=== PATIENT | male | born 1945 | race Caucasian/White ===

== ENCOUNTER 2017-02-07 11:33 | Emergency (ER) | payer OTHER ==
[~2017-02-07] VITALS: Ht 182.9 cm; Wt 90.8 kg
[~2017-02-07 11:33] MED LIST: ASPI81TA28 PO; ATOR-54 PO; NAPR1TAB9 PO; OMEG10007 PO
[2017-02-07 11:38] VITALS: BP 117/77; PULSE 85; TEMP 36.7; O2SAT 94; Ht 182.9 cm; Wt 90.8 kg
[2017-02-07] MEDS ORDERED: DOXYCYCLINE HYCLATE 100 MG CAP PO ONE (12:00)
[2017-02-07] MEDS ORDERED: XYLOCAINE 1%/SOD BICARB 20 ML VIAL INFIL ONE (12:00)
--- NOTE | 2017-02-07 12:14 | EMERGENCY ROOM VISIT NOTE ---
ED Visit Note First contact with patient: 11:42 The patient was seen and examined with Juni Brar PA-C. I agree with the history, physical and findings. Please see the note for disposition and details.
--- NOTE | 2017-02-07 21:05 | EMERGENCY ROOM VISIT NOTE ---
History First contact with patient: 11:42 Chief Complaint: BITE Stated Complaint: TICK BITE History of Present Illness The patient is a 71 year old male who presents to the Emergency Room requesting tick removal from his left upper thigh. The patient reports that he noticed a tick this morning. He attempted to remove it, but was unable to remove the head. The patient is uncertain how long the tick may have been attached, possibly upwards of 4-5 days. Tetanus immunization is up-to-date. The patient denies any discomfort. Review of Systems 6 system review was performed and was negative except for pertinent positives and negatives as indicated in history of present illness Past Medical/Surgical History Medical Problems: (1) Finger laceration (2) Pure Hypercholesterolem (3) Right Knee DJD (4) Sinusitis (5) Tick bite of flank (6) Vertigo Surgical Problems: (1) Knee Joint Replacement Status Family History Unremarkable Social History Smoking Status: Never Smoker Alcohol Use: none Marital Status: Occupation Status: retired Current/Historical Medications Scheduled Aspirin (Aspirin Ec), 81 MG PO QAM Fish Oil ([place]-3), 1 CAP PO DAILY Naproxen (Aleve), 220 MG PO DAILY Allergies Coded Allergies: No Known Allergies (Unverified , 02/07/17) Physical Exam Vital Signs Date Time Temp Pulse Resp B/P Pulse Ox O2 Delivery O2 Flow Rate FiO2 02/07/17 11:38 36.7 85 18 117/77 94 Pain Rating (0-10): 0 Physical Exam CONSTITUTIONAL: Healthy and well nourished. Alert and oriented X 3 with positive affect. Patient does not appear in any acute distress. HEENT: Normocephalic, atraumatic. Pupils equal, round and reactive. NECK: Full active range of motion without discomfort. MUSCULOSKELETAL: Full range of motion of all joints without discomfort. INTEGUMENTARY: Examination of the posterior medial thigh shows evidence for erythema and a remnant tick. A small venous swain is noted. No induration. NEUROLOGIC: No focal neurologic deficits noted. Medical Decision & Procedures Medications Administered Medications (Trade) Dose Ordered Sig/Shaylee Route Start Time Stop Time Status Last Admin Dose Admin Doxycycline Hyclate (Vibramycin Cap) 200 mg ONE ONCE PO 02/07/17 12:00 02/07/17 12:01 DC 02/07/17 12:12 200 MG Procedure The patient requested foreign body removal. This was performed under local anesthesia using buffered 1% lidocaine. A local wheal was administered. The area was then painted and allowed to dry. Using a 27-gauge needle, the tick was elevated and sharply excised using a #15 scalpel. The wound was then further cleansed and covered with a bacitracin Band-Aid. ED Course Patient history and physical exam were performed. Nurse's notes were reviewed. The patient was administered doxycycline 200 mg orally. I did explain that the remaining foreign body did not need to be removed. However, the patient requested that it be removed. This was performed under local anesthesia. She was encouraged to keep the wound clean and covered with an antibiotic ointment, watching for any worsening redness or signs of infection. He was also instructed to watch for any developing rash consistent with erythema migrans, which will be unlikely given his prophylactic doxycycline treatment. The patient was happy with plan of care, and denied any pain at the time of discharge. Medical Decision Impression Primary Impression: Tick bite of thigh Departure Information Dispostion Home / Self-Care Condition GOOD Forms HOME CARE DOCUMENTATION FORM, IMPORTANT VISIT INFORMATION Patient Instructions Bites Tick, My [facility] Additional Instructions Check yourself frequently for ticks every time you go outside. Remove ticks as quickly as possible to reduce risk of Lyme's disease. Watch for any worsening redness around the bite, and follow-up with your family doctor as needed. Problem Qualifiers Primary Impression: Tick bite of thigh Encounter type: initial encounter Laterality: left Qualified Codes: S70.362A - Insect bite (nonvenomous), left thigh, initial encounter; W57.XXXA - Bitten or stung by nonvenomous insect and other nonvenomous arthropods, initial encounter
== END 2017-02-07 12:17 | disposition home or self-care (01) ==
LOC: C.EDB 11:34 → C.EDD 12:17
DX: S70.362A Insect bite (nonvenomous), left thigh, initial encounter (principal); W57.XXXA Bitten or stung by nonvenomous insect and other nonvenomous arthropods, initial encounter; E78.00 Pure hypercholesterolemia, unspecified; Z96.659 Presence of unspecified artificial knee joint; Z79.82 Long term (current) use of aspirin

== ENCOUNTER 2017-06-14 20:21 | Emergency (ER) | payer OTHER ==
[~2017-06-14] VITALS: Ht 182.9 cm; Wt 88.9 kg
[~2017-06-14 20:21] MED LIST changes: -ATOR-54 PO
[2017-06-14 20:42] VITALS: TEMP 36.6; Ht 182.9 cm; Wt 88.9 kg
--- NOTE | 2017-06-14 21:20 | EMERGENCY ROOM VISIT NOTE ---
ED Visit Note First contact with patient: 21:04 I have seen and examined this patient with Lois Dahl and generally agree with the treatment plan as discussed. Problem List Medical Problems: (1) Finger laceration Status: Resolved (2) Pure Hypercholesterolem Status: Chronic (3) Right Knee DJD Status: Resolved (4) Sinusitis Status: Resolved (5) Tick bite of flank Status: Resolved (6) Vertigo Status: Chronic Surgical Problems: (1) Knee Joint Replacement Status Status: Resolved Current/Historical Medications Scheduled Aspirin (Aspirin Ec), 81 MG PO QAM Fish Oil ([place]-3), 1 CAP PO DAILY Naproxen (Aleve), 220 MG PO DAILY Allergies Coded Allergies: No Known Allergies (Unverified , 02/07/17) Vital Signs Date Time Temp Pulse Resp B/P (MAP) Pulse Ox O2 Delivery O2 Flow Rate FiO2 06/14/17 20:42 36.6 75 18 111/68 94 Room Air Departure Information Referrals No Doctor, Assigned (PCP) Patient Instructions My [facility]
--- NOTE | 2017-06-14 21:28 | EMERGENCY ROOM VISIT NOTE ---
ED Visit Note First contact with patient: 21:04 CHIEF COMPLAINT: Tick bite HISTORY OF PRESENT ILLNESS: This 72-year-old male patient presents to the emergency department ambulatory complaining of a possible tick bite to the back. The patient states that he believes there is a tick in place on his back. He is unable to see the area and his is unsure if it is a tick or not. He believes that if it is a tick, it has been in place for greater than 1 day. He has been picking at the area. He denies any pain or itching. The patient denies any redness, swelling or drainage from the area. They deny any rashes, fevers or joint pain. REVIEW OF SYSTEMS: A review of systems was performed with positives and pertinent negatives listed in the history of present illness. All other systems were reviewed and are negative. ALLERGIES: No known drug allergies MEDICATIONS: Aspirin PMH: Knee replacement SOCIAL HISTORY: The patient lives locally with his . Nonsmoker, admits to occasional alcohol use. PHYSICAL EXAM: VITALS: Vitals are noted on the nurse's note and reviewed by myself. Vital signs stable. GENERAL: This is a 72-year-old male, in no acute distress, nondiaphoretic, well- developed well-nourished. SKIN: There is a scabbed area to the right low back with some small black debris embedded centrally. No surrounding erythema or target rashes. EMERGENCY DEPARTMENT COURSE: The patient was seen and examined as above. Forceps were used to remove the black debris from the wound. It is unclear if these are tick parts or just scabbing from the wound. The patient will be given a one-time dose of doxycycline in case this did represent a tick bite which was removed. He was given a tick twister to use at home. He verbalized understanding of my assessment and treatment plan. The patient was discharged home in good condition. The patient was independently evaluated by Dr. Huff, ED attending physician , who agreed with my assessment and treatment plan. Medication reconciliation: I attest that I have personally reviewed the patient 's current medication list. Blood pressure screening: Patient was found to have normal blood pressure on screening and does not require follow-up. DIAGNOSIS: Tick bite Problem List Medical Problems: (1) Finger laceration Status: Resolved (2) Pure Hypercholesterolem Status: Chronic (3) Right Knee DJD Status: Resolved (4) Sinusitis Status: Resolved (5) Tick bite of flank Status: Resolved (6) Vertigo Status: Chronic Surgical Problems: (1) Knee Joint Replacement Status Status: Resolved Current/Historical Medications Scheduled Aspirin (Aspirin Ec), 81 MG PO QAM Fish Oil ([place]-3), 1 CAP PO DAILY Naproxen (Aleve), 220 MG PO DAILY Allergies Coded Allergies: No Known Allergies (Unverified , 02/07/17) Vital Signs Date Time Temp Pulse Resp B/P (MAP) Pulse Ox O2 Delivery O2 Flow Rate FiO2 06/14/17 20:42 36.6 75 18 111/68 94 Room Air Departure Information Impression Primary Impression: Tick bite Dispostion Home / Self-Care Condition GOOD Referrals No Doctor, Assigned (PCP) Patient Instructions My [facility] Additional Instructions Follow-up with your primary care provider as needed. Apply antibiotic ointment and a bandage to the wound for the next few days. Problem Qualifiers Primary Impression: Tick bite Encounter type: initial encounter Qualified Codes: W57.XXXA - Bitten or stung by nonvenomous insect and other nonvenomous arthropods, initial encounter
[2017-06-14] MEDS ORDERED: DOXYCYCLINE HYCLATE 100 MG CAP PO ONE (21:30)
[2017-06-14 21:33] VITALS: BP 115/71; PULSE 69; O2SAT 95
== END 2017-06-14 21:34 | disposition home or self-care (01) ==
LOC: C.EDB 20:21 → C.EDD 21:34
DX: S30.860A Insect bite (nonvenomous) of lower back and pelvis, initial encounter (principal); W57.XXXA Bitten or stung by nonvenomous insect and other nonvenomous arthropods, initial encounter; E78.00 Pure hypercholesterolemia, unspecified; Z96.651 Presence of right artificial knee joint; Z87.828 Personal history of other (healed) physical injury and trauma; Z79.82 Long term (current) use of aspirin

== ENCOUNTER 2020-10-11 09:03 | Observation (INO) ==
[2020-10-11] MEDS ORDERED: SODIUM CHLORIDE 0.9% 1000ML 500 ML IV ONE (09:30)
--- NOTE | 2020-10-11 10:10 | Emergency Department Note ---
Impression & Plan Pneumonia, Hypoxia, COVID-19 virus infection ED Provider Note NAME: SOLEDAD ERNANDEZ AGE: 75 SEX: M : 1945 ARRIVES VIA: Walk-In INFORMANT: Patient, ED PROVIDER(S): Parish Cartagena DO CHIEF COMPLAINT: Cough HPI: The patient is a 75-year-old male who presented to the emergency department for an evaluation of cough and shortness of breath. The patient was diagnosed with COVID-19 approximately 10 days ago. He states he initially thought he was getting better but then started having worsening symptoms including cough and difficulty breathing. He denies having any abdominal pain or diarrhea but has noticed some nausea. He has had decreased p.o. intake. He has had decreased activity notices fatigue and body aches. He is not been seen by his primary care physician. He was tested as an outpatient for COVID-19 and was positive. The patient denies having any orthopnea. He denies having any chest pain but does state that he has some discomfort when he takes deep breath. He states the coughing is worse when he takes a deep breath. ROS: See above HPI for pertinent positives & negatives. A total of 10 systems reviewed and were otherwise negative. PAST MEDICAL HISTORY: See Below PAST SURGICAL HISTORY: See Below FAMILY HISTORY: See Below SOCIAL HISTORY: See Below HOME MEDICATIONS: See Below ALLERGIES: See Below VITALS: See Below PHYSICAL EXAMINATION: GENERAL: The patient is awake and alert. He is somewhat anxious appearing but overall comfortable. EYES: The conjunctivae are clear. The pupils are round and reactive. EARS, NOSE, MOUTH AND THROAT: The nose is without any evidence of any deformity. NECK: The neck is nontender and supple. RESPIRATORY: Shallow respirations were noted. Scattered rhonchi was noted throughout. There was no tachypnea or conversational dyspnea. CARDIOVASCULAR: Regular rate and rhythm noted there no murmurs rubs or gallops normal S1 normal S2. GASTROINTESTINAL: The abdomen is soft. Abdomen is nontender. MUSCULOSKELETAL/EXTREMITIES: There is no evidence of gross deformity full range of motion is noted in the hips and shoulders. SKIN: There is no obvious evidence of any rash. There are no petechiae, pallor or cyanosis noted. No calf tenderness was elicited. NEUROLOGIC: Patient is awake alert and oriented x3 strength is symmetric pat ellar reflexes are 2+ bilaterally MEDICAL DECISION MAKING: The patient is a 75-year-old male who presented to the emergency department for an evaluation of cough. The patient was diagnosed with Covid pneumonia and presented to the emergency department because of ongoing symptoms which now became pulmonary. The patient was hypoxic and found to have significant pulmonary infiltrates. The patient was treated with IV Decadron and IV antibiotics. He was reevaluated multiple times. I discussed his case with the on-call [facility] hospitalist. Triage Nursing notes reviewed. Prior medical records reviewed Vital Signs: reviewed and remarkable for hypoxia Differential diagnosis: Reactive airway disease, pneumonia, pneumothorax, COPD, CHF, infections, ca rdiac ischemia, pulmonary embolism, musculoskeletal, gastrointestinal, as well as other pathologies. ER treatment provided: See below Diagnostics interpreted by me: ECG: EKG was obtained in the emergency department. My interpretation is normal sinus rhythm at 90 bpm. There is no ectopy. There was no acute ST segment abnormalities noted. This was compared to a tracing from December 29, 2013. No significant changes were noted. Cardiac Monitoring: An order was placed for continuous cardiac monitoring. The monitor shows a rate of 85 bpm with sinus rhythm. Laboratory studies: As stated above and show below. Imaging studies: See below Consultation(s): 1155: I discussed this case with Dr. Quintana. 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 Beliefs That Will Affect Care: None Current Living Situation: Spouse Feels Safe at Home: Yes Assistive Devices: Glasses Allergies Allergies Allergy/AdvReac Type Severity Reaction Status Date / Time No Known Allergies Allergy Verified 10/11/20 10:06 Home Meds Home Medications Medication Instructions Recorded Confirmed pravastatin 10 mg PO HS 09/02/18 10/11/20 naproxen sodium [Aleve] 220 mg PO Q12H PRN 07/11/20 10/11/20 aspirin [Aspir-Low] 81 mg PO HS 10/11/20 10/11/20 Results & Data (ED) Vital Signs Vital Signs - 24 hr 10/11/20 09:07 10/11/20 09:48 10/11/20 10:28 Temperature 36.5 C Temperature Source Temporal Artery Scan Pulse Rate 92 H Pulse Rate [Left Finger] 90 72 Pulse Rhythm Regular Pulse Strength Normal Respiratory Rate 20 18 16 Respiratory Effort / Characteristics Non-Labored Spontaneous Respiratory Depth Normal Respiratory Pattern Regular Blood Pressure 127/81 Blood Pressure [Left Arm] 148/91 H 143/83 H Blood Pressure Mean 96 Blood Pressure Mean [Left Arm] 110 103 Blood Pressure Position Sitting Pulse Oximetry 98 91 88 L Oxygen Delivery Method Room Air Room Air Room Air Oxygen Flow Rate Sepsis Recent Fever Within 48 Hours No Sepsis New/Unexplained Change in Mental Status No Sepsis Action Taken by Nursing No Action Required 10/11/20 10:29 10/11/20 12:04 10/11/20 14:14 Temperature Temperature Source Pulse Rate Pulse Rate [Left Finger] 70 71 Pulse Rhythm Pulse Strength Respiratory Rate 16 18 Respiratory Effort / Characteristics Respiratory Depth Respiratory Pattern Blood Pressure Blood Pressure [Left Arm] 154/86 H 140/88 Blood Pressure Mean Blood Pressure Mean [Left Arm] 108 105 Blood Pressure Position Pulse Oximetry 96 97 95 Oxygen Delivery Method Room Air Room Air Room Air Oxygen Flow Rate 2 Sepsis Recent Fever Within 48 Hours Sepsis New/Unexplained Change in Mental Status Sepsis Action Taken by Usp Medications Current Medication List: was personally reviewed by me Laboratory Data Attestation: I reviewed the patient's lab results. Result diagrams: 10/11/20 09:47 10/11/20 09:47 Lab Results 10/11/20 10/11/20 10/11/20 Range/Units 09:47 09:47 09:47 WBC 2.12 L (4.8-10.8) K/uL RBC 4.52 L (4.7-6.1) M/uL Hgb 13.9 L (14.0-18.0) g/dL Hct 41.6 L (42-52) % MCV 92.0 (80-100) fL MCH 30.8 (25-34) pg MCHC 33.4 (32-36) g/dL RDW Std Deviation 41.0 (36.4-46.3) fL RDW Coeff of Kai 12.1 (11.5-14.5) % Plt Count 99 L (130-400) K/uL MPV 10.9 H (7.4-10.4) fL Immature Gran % (Auto) 0.0 % Neut % (Auto) 72.7 % Lymph % (Auto) 14.6 % Greene % (Auto) 12.7 % Eos % (Auto) 0.0 % Baso % (Auto) 0.0 % Neut # (Auto) 1.54 (1.4-6.5) K/uL Lymph # (Auto) 0.31 L (1.2-3.4) K/uL Greene # (Auto) 0.27 (0.11-0.59) K/uL Eos # (Auto) 0.00 (0-0.5) K/uL Baso # (Auto) 0.00 (0-0.2) K/uL Immature Gran # (Auto) 0.00 (0.00-0.02) K/uL PT 10.9 (9.0-12.0) Seconds INR 1.0 (0.9-1.1) APTT 31.2 H (21.0-31.0) Seconds PTT Ratio 1.1 D-Dimer (0-500) ug/L FEU Sodium 139 (136-145) mmol/L Potassium 3.8 (3.5-5.1) mmol/L Chloride 106 (98-107) mmol/L Carbon Dioxide 30 (21-32) mmol/L Anion Gap 3.0 (3-11) BUN 13 (7-18) mg/dl Creatinine 0.91 (0.6-1.4) mg/dl Est Cr Clr Drug Dosing 79.4 ml/min Est GFR ( Amer) 96.6 Est GFR (Non-Af Amer) 83.3 BUN/Creatinine Ratio 13.8 (10-20) Glucose 94 (70-99) mg/dl Calcium 8.1 L (8.5-10.1) mg/dl Ferritin (8-388) ng/ml Total Bilirubin 0.4 (0.2-1) mg/dl AST 11 L (15-37) U/L ALT 21 (12-78) U/L Alkaline Phosphatase 48 (45-117) U/L Lactate Dehydrogenase (87-241) U/L Total Creatine Kinase (39-308) U/L Troponin I 0.072 H* (0-0.045) ng/ml C-Reactive Protein (0-0.29) mg/dl NT-Pro-B Natriuret Pep 75 (0-900) pg/ml Total Protein 6.6 (6.4-8.2) gm/dl Albumin 3.0 L (3.4-5.0) gm/dl Globulin 3.6 (2.5-4.0) gm/dl Albumin/Globulin Ratio 0.8 L (0.9-2) Procalcitonin (0-0.5) ng/ml Urine Color Urine Appearance (Clear) Urine pH (4.5-7.5) Ur Specific [place] (1.000-1.030) Urine Protein (Negative) Urine Glucose (UA) (Negative) Urine Ketones (Negative) Urine Blood (Negative) Urine Nitrite (Negative) Urine Bilirubin (Negative) Urine Urobilinogen (Negative) Ur Leukocyte Esterase (Negative) Urine WBC (Auto) (0-5) /hpf Urine RBC (Auto) (0-4) /hpf U Hyaline Cast (Auto) (0-5) /lpf U Epithel Cells (Auto) (0-5) /lpf Urine Bacteria (Auto) (Negative) 10/11/20 10/11/20 10/11/20 Range/Units 09:47 09:47 09:47 WBC (4.8-10.8) K/uL RBC (4.7-6.1) M/uL Hgb (14.0-18.0) g/dL Hct (42-52) % MCV (80-100) fL MCH (25-34) pg MCHC (32-36) g/dL RDW Std Deviation (36.4-46.3) fL RDW Coeff of Kai (11.5-14.5) % Plt Count (130-400) K/uL MPV (7.4-10.4) fL Immature Gran % (Auto) % Neut % (Auto) % Lymph % (Auto) % Greene % (Auto) % Eos % (Auto) % Baso % (Auto) % Neut # (Auto) (1.4-6.5) K/uL Lymph # (Auto) (1.2-3.4) K/uL Greene # (Auto) (0.11-0.59) K/uL Eos # (Auto) (0-0.5) K/uL Baso # (Auto) (0-0.2) K/uL Immature Gran # (Auto) (0.00-0.02) K/uL PT (9.0-12.0) Seconds INR (0.9-1.1) APTT (21.0-31.0) Seconds PTT Ratio D-Dimer 710 H* (0-500) ug/L FEU Sodium (136-145) mmol/L Potassium (3.5-5.1) mmol/L Chloride (98-107) mmol/L Carbon Dioxide (21-32) mmol/L Anion Gap (3-11) BUN (7-18) mg/dl Creatinine (0.6-1.4) mg/dl Est Cr Clr Drug Dosing ml/min Est GFR ( Amer) Est GFR (Non-Af Amer) BUN/Creatinine Ratio (10-20) Glucose (70-99) mg/dl Calcium (8.5-10.1) mg/dl Ferritin 619.3 H (8-388) ng/ml Total Bilirubin (0.2-1) mg/dl AST (15-37) U/L ALT (12-78) U/L Alkaline Phosphatase (45-117) U/L Lactate Dehydrogenase 246 H (87-241) U/L Total Creatine Kinase 60 (39-308) U/L Troponin I (0-0.045) ng/ml C-Reactive Protein 4.59 H (0-0.29) mg/dl NT-Pro-B Natriuret Pep (0-900) pg/ml Total Protein (6.4-8.2) gm/dl Albumin (3.4-5.0) gm/dl Globulin (2.5-4.0) gm/dl Albumin/Globulin Ratio (0.9-2) Procalcitonin (0-0.5) ng/ml Urine Color Urine Appearance (Clear) Urine pH (4.5-7.5) Ur Specific [place] (1.000-1.030) Urine Protein (Negative) Urine Glucose (UA) (Negative) Urine Ketones (Negative) Urine Blood (Negative) Urine Nitrite (Negative) Urine Bilirubin (Negative) Urine Urobilinogen (Negative) Ur Leukocyte Esterase (Negative) Urine WBC (Auto) (0-5) /hpf Urine RBC (Auto) (0-4) /hpf U Hyaline Cast (Auto) (0-5) /lpf U Epithel Cells (Auto) (0-5) /lpf Urine Bacteria (Auto) (Negative) 10/11/20 10/11/20 Range/Units 09:47 09:48 WBC (4.8-10.8) K/uL RBC (4.7-6.1) M/uL Hgb (14.0-18.0) g/dL Hct (42-52) % MCV (80-100) fL MCH (25-34) pg MCHC (32-36) g/dL RDW Std Deviation (36.4-46.3) fL RDW Coeff of Kai (11.5-14.5) % Plt Count (130-400) K/uL MPV (7.4-10.4) fL Immature Gran % (Auto) % Neut % (Auto) % Lymph % (Auto) % Greene % (Auto) % Eos % (Auto) % Baso % (Auto) % Neut # (Auto) (1.4-6.5) K/uL Lymph # (Auto) (1.2-3.4) K/uL Greene # (Auto) (0.11-0.59) K/uL Eos # (Auto) (0-0.5) K/uL Baso # (Auto) (0-0.2) K/uL Immature Gran # (Auto) (0.00-0.02) K/uL PT (9.0-12.0) Seconds INR (0.9-1.1) APTT (21.0-31.0) Seconds PTT Ratio D-Dimer (0-500) ug/L FEU Sodium (136-145) mmol/L Potassium (3.5-5.1) mmol/L Chloride (98-107) mmol/L Carbon Dioxide (21-32) mmol/L Anion Gap (3-11) BUN (7-18) mg/dl Creatinine (0.6-1.4) mg/dl Est Cr Clr Drug Dosing ml/min Est GFR ( Amer) Est GFR (Non-Af Amer) BUN/Creatinine Ratio (10-20) Glucose (70-99) mg/dl Calcium (8.5-10.1) mg/dl Ferritin (8-388) ng/ml Total Bilirubin (0.2-1) mg/dl AST (15-37) U/L ALT (12-78) U/L Alkaline Phosphatase (45-117) U/L Lactate Dehydrogenase (87-241) U/L Total Creatine Kinase (39-308) U/L Troponin I (0-0.045) ng/ml C-Reactive Protein (0-0.29) mg/dl NT-Pro-B Natriuret Pep (0-900) pg/ml Total Protein (6.4-8.2) gm/dl Albumin (3.4-5.0) gm/dl Globulin (2.5-4.0) gm/dl Albumin/Globulin Ratio (0.9-2) Procalcitonin < 0.05 (0-0.5) ng/ml Urine Color Yellow Urine Appearance Cloudy A (Clear) Urine pH 7.0 (4.5-7.5) Ur Specific [place] 1.013 (1.000-1.030) Urine Protein Negative (Negative) Urine Glucose (UA) Negative (Negative) Urine Ketones Negative (Negative) Urine Blood Negative (Negative) Urine Nitrite Negative (Negative) Urine Bilirubin Negative (Negative) Urine Urobilinogen Negative (Negative) Ur Leukocyte Esterase Negative (Negative) Urine WBC (Auto) 1-5 (0-5) /hpf Urine RBC (Auto) 0-4 (0-4) /hpf U Hyaline Cast (Auto) 0 (0-5) /lpf U Epithel Cells (Auto) 0-5 (0-5) /lpf Urine Bacteria (Auto) Negative (Negative) Administered Medications Discontinued Medications Dexamethasone (Dexamethasone Sod Inj 10 Mg/Ml Vial) 10 mg IV NOW ONE Stop: 10/11/20 11:21 Last Admin: 10/11/20 11:55 Dose: 10 mg Documented by: [id number] Sodium Chloride (Nss 1000ml) 500 mls @ 999 mls/hr IV .Q31M ONE Stop: 10/11/20 10:00 Last Infusion: 10/11/20 10:27 Dose: 0 mls/hr Documented by: [id number] Admin: 12/18/20 09:54 Dose: 999 mls/hr Documented by: [id number] Piperacillin Sod/Tazobactam Sod (Zosyn) 4.5 gm in 120 mls @ 240 mls/hr IV NOW ONE Stop: 10/11/20 11:49 Last Infusion: 10/11/20 12:25 Dose: 0 mls/hr Documented by: [id number] Admin: 10/11/20 11:55 Dose: 240 mls/hr Documented by: [id number] Ioversol (Optiray 320 125ml) 120 ml IV ONCE ONE Stop: 10/11/20 11:00 Last Admin: 10/11/20 11:00 Dose: 120 ml Documented by: [id number] Imaging Data Radiologist's Impression: Patient: SOLEDAD ERNANDEZ Admit Date: 10/11/20 MR#: [id number] Address1: [address] [place] [address] Acct ID:[id number] Address2: Date: 1945 [facility] Zip: [place] [address] Age: 75 Location: ED Sex: M Room/Bed: Att Phy: Diagnosis: covid+, cough, sob Reema Phy: Jose Limon D.O. Service Date: 10/11/20 Fam Phy: Interpreting Phy: Franky Jones MD Admit Phy: Ordering Phy: Parish Cartagena DO cc: ~ CT ANGIOGRAPHY OF THE CHEST, PULMONARY EMBOLUS PROTOCOL CLINICAL HISTORY: Cough. Fever. Fatigue. COMPARISON STUDY: Chest radiograph performed earlier today. TECHNIQUE: Following IV administration of 120 mL of Optiray-320, helical axial images of the chest were obtained utilizing the pulmonary embolus protocol. Maximal intensity projections and sagittal and coronal reformats were viewed on an independent 3D workstation. IV contrast was administered without complication. Automated exposure control was utilized for the study. A dose lowering technique was utilized adhering to the principles of ALARA. CT DOSE: 541.42 mGycm FINDINGS: No pulmonary emboli are identified. There is no thoracic aortic dissection. The heart is mildly enlarged. Incidental note is made of a 1.4 cm left lobe thyroid nodule. There is no pericardial effusion. No enlarged axillary, mediastinal or hilar lymph nodes are present. A small hiatal hernia is present. No pneumothorax or pleural effusion is noted. Moderate multifocal groun dglass opacities throughout the lungs are noted. Bony thorax is unremarkable. Upper abdomen is unremarkable. IMPRESSION: 1. No pulmonary emboli identified. 2. Moderate multifocal groundglass opacities within the lungs consistent with a viral pneumonia. ACT 112: Negative or not required by law. Electronically signed by: Franky Jones M.D. 10/11/2020 11:18 AM Dictated: 10/11/20 1111 Transcribed: 10/11/20 1111 Patient: SOLEDAD ERNANDEZ Admit Date: 10/11/20 MR#: [id number] Address1: [address] [place] [address] Acct ID:[id number] Address2: Date: 1945 [facility] Zip: [place] [address] Age: 75 Location: ED Sex: M Room/Bed: Att Phy: Diagnosis: covid+, cough, sob Reema Phy: Jose Limon D.O. Service Date: 10/11/20 Fam Phy: Interpreting Phy: Franky Jones MD Admit Phy: Ordering Phy: Parish Cartagena DO cc: ~ XR chest 1V portable CLINICAL HISTORY: Dyspnea COMPARISON STUDY: Chest radiograph December 16, 2019. FINDINGS: Lung volumes are normal. There is no pneumothorax or pleural effusion. There is no lobar consolidation. There are possible subtle bilateral lower lung opacities. Cardiomediastinal silhouette is stable. There is no evidence for pulmonary edema. IMPRESSION: Possible subtle bilateral lung airspace opacities which could reflect an infectious process. No consolidation identified. ACT 112: Negative or not required by law. Electronically signed by: Franky Jones M.D. 10/11/2020 10:09 AM Dictated: 10/11/20 1007 Transcribed: 10/11/20 1007 Blood Pressure Blood Pressure Findings: Normal blood pressure Discharge Plan Visit Data Chief Complaint: Cough Stated Complaint: covid+, cough, sob ED Provider: Parish Cartagena Discharge Problem: Pneumonia, Hypoxia, COVID-19 virus infection Patient Disposition: Being Evaluated by Hospitalist Condition: Good Forms Stand Alone Forms: [facility], [facility] Emergency Department, Impo rtant Visit Information Prescriptions Prescriptions: No Action pravastatin 10 mg Tablet 10 mg PO HS RF: 0 naproxen sodium [Aleve] 220 mg Tablet 220 mg PO Q12H PRN (Reason: Pain) RF: 0 aspirin [Aspir-Low] 81 mg Tablet,Delayed Release (Dr/Ec) 81 mg PO HS RF: 0 Referrals Referrals: Jose Limon DO [Primary Care Provider] -
--- NOTE | 2020-10-11 10:11 | XRay Report ---
XR chest 1V portable CLINICAL HISTORY: Dyspnea COMPARISON STUDY: Chest radiograph December 16, 2019. FINDINGS: Lung volumes are normal. There is no pneumothorax or pleural effusion. There is no lobar co nsolidation. There are possible subtle bilateral lower lung opacities. Cardiomediastinal silhouette i s stable. There is no evidence for pulmonary edema. IMPRESSION: Possible subtle bilateral lung airspace opacities which could reflect an infectious proc ess. No consolidation identified. ACT 112: Negative or not required by law. Electronically signed by: Franky Jones M.D. 10/11/2020 10:09 AM
[2020-10-11 10:18] LABS: Appearance Urine Cloudy (Clear); Bacteria Urine Automated Negative (Negative); Bilirubin Urine Negative (Negative); Blood Urine Negative (Negative); Cast Urine Automated 0 /lpf (0-5); Color Urine Yellow; Epithelial Cell Urine Auto 0-5 /lpf (0-5); Glucose Urine UA Negative (Negative); Ketones Urine Negative (Negative); Leukocyte Esterase Urine Negative (Negative); Nitrite Urine Negative (Negative); Protein Urine Negative (Negative); RBC Urine Automated 0-4 /hpf (0-4); Specific Gravity Urine 1.013 (1.000-1.030); Urobilinogen Urine Negative (Negative)
[2020-10-11 10:19] LABS: Partial Thromboplastin Ratio 1.1; Partial Thromboplastin Time 31.2 Seconds (21.0-31.0); Prothrombin Time 10.9 Seconds (9.0-12.0)
[2020-10-11 10:22] LABS: BUN Creatinine Ratio 13.8 (10-20); Calcium 8.1 mg/dl (8.5-10.1); Creatinine Clr Calc Pharmacy 79.4 ml/min; Est GFR (African American) 96.6; Est GFR (Non-African American) 83.3; Potassium 3.8 mmol/L (3.5-5.1)
[2020-10-11 10:28] LABS: Hematocrit (blood only) 41.6 % (42-52); Hemoglobin 13.9 g/dL (14.0-18.0); Lymphocytes # (auto) 0.31 K/uL (1.2-3.4); Lymphocytes % (auto) 14.6 %; Mean Corpuscular Hemoglobin 30.8 pg (25-34); Mean Corpuscular Hgb Conc 33.4 g/dL (32-36); Mean Platelet Volume 10.9 fL (7.4-10.4); Monocytes # (auto) 0.27 K/uL (0.11-0.59); Monocytes % (auto) 12.7 %; Neutrophils # (auto) 1.54 K/uL (1.4-6.5); Neutrophils % (auto) 72.7 %; Platelet Count 99 K/uL (130-400); RDW Coefficient of Variation 12.1 % (11.5-14.5); Red Blood Count 4.52 M/uL (4.7-6.1); White Blood Count 2.12 K/uL (4.8-10.8)
[2020-10-11 10:32] LABS: Albumin Globulin Ratio 0.8 (0.9-2); Bilirubin,Total 0.4 mg/dl (0.2-1); Globulin 3.6 gm/dl (2.5-4.0); Total Protein 6.6 gm/dl (6.4-8.2); Troponin I 0.072 ng/ml (0-0.045)
[2020-10-11] MEDS ORDERED: OPTIRAY 320 125ml IV ONE (10:59)
--- NOTE | 2020-10-11 11:19 | CT Scan Report ---
CT ANGIOGRAPHY OF THE CHEST, PULMONARY EMBOLUS PROTOCOL CLINICAL HISTORY: Cough. Fever. Fatigue. COMPARISON STUDY: Chest radiograph performed earlier today. TECHNIQUE: Following IV administration of 120 mL of Optiray-320, helical axial images of the chest we re obtained utilizing the pulmonary embolus protocol. Maximal intensity projections and sagittal and coronal reformats were viewed on an independent 3D workstation. IV contrast was administered withou t complication. Automated exposure control was utilized for the study. A dose lowering technique wa s utilized adhering to the principles of ALARA. CT DOSE: 541.42 mGycm FINDINGS: No pulmonary emboli are identified. There is no thoracic aortic dissection. The heart is m ildly enlarged. Incidental note is made of a 1.4 cm left lobe thyroid nodule. There is no pericardial effusion. No enlarged axillary, mediastinal or hilar lymph nodes are present. A small hiatal hernia is present. No pneumothorax or pleural effusion is noted. Moderate multifocal groundglass opacities t hroughout the lungs are noted. Bony thorax is unremarkable. Upper abdomen is unremarkable. IMPRESSION: 1. No pulmonary emboli identified. 2. Moderate multifocal groundglass opacities within the lungs consistent with a viral pneumonia. ACT 112: Negative or not required by law. Electronically signed by: Franky Jones M.D. 10/11/2020 11:18 AM
[2020-10-11] MEDS ORDERED: PIPERACILL/TAZOBAC CONSULT ACTIVE PRN (11:20)
[2020-10-11] MEDS ORDERED: DEXAMETHASONE SOD INJ 10 MG/ML VIAL IV ONE (11:20)
[2020-10-11] MEDS ORDERED: PIPERACILLIN/TAZOBACTAM 4.5 GM/120 ML BAG IV ONE (11:20)
--- NOTE | 2020-10-11 11:56 | History & Physical Report ---
Date of Service October 11, 2020 Assessment & Plan (1) COVID-19: 14 days from initial symptoms however given worsening symptoms and increased inflammatory markers will treat with dexamethasone 6 mg IV daily for 10 days. Isolation cautions - airborne and droplet No indication for further antibiotics with negative procalcitonin, chest x-ray and CT findings. (2) Hypoxia: Aim O2 sats > 90 %. 6 minute walk test in AM to determine need for home O2, likely discharge tomorrow. (3) Hyperlipidemia: Continue pravastatin 10 mg p.o. at bedtime (4) DVT prophylaxis: Lovenox 40 mg SQ BID Admission and Anticipated Discharge Date Admission Date: 10/11/2020 History of Present Illness Chief Complaint: Shortness of breath, fatigue, myalgias. Primary Care Provider: Jose Limon DO Akhil Lang is a 75-year-old male who presents to the ER with worsening shortness of breath, fatigue and myalgias. Initially tested positive for COVID- 19 12 days ago, but had symptoms for 2 days prior to this. Intermittently felt he was improving however now feels he is getting worse for the last 4 to 5 days. Symptoms including generalized muscle aches, fatigue, insomnia, poor appetite, diarrhea, shortness of breath, dry cough. In the ER chest x-ray and CT were consistent with COVID-19 pneumonia. Given worsening symptoms he was covered for bacterial pneumonia with Zosyn IV. He was hypoxic 88% on room air and does not usually wake oxygen at home. He lives with his and has good family support at home. He was referred to medicine for a dmission and ongoing management of COVID-19 pneumonia and hypoxia. Allergies Allergy/AdvReac Type Severity Reaction Status Date / Time No Known Allergies Allergy Verified 10/11/20 10:06 Home Medications Medication Instructions Recorded Confirmed Type pravastatin 10 mg PO HS 09/02/18 10/11/20 History naproxen sodium [Aleve] 220 mg PO Q12H PRN 07/11/20 10/11/20 History aspirin 81 mg PO HS 10/11/20 10/11/20 History azithromycin [Zithromax Z-Piyush] See Rx Instructions .ROUTE 10/12/20 Rx .COMPLEX #6 tab dexamethasone 6 mg PO DAILY 6 Days #18 tab 10/12/20 Rx Past Med/Surg History Medical History GERD (gastroesophageal reflux disease) Hyperlipidemia Inguinal hernia RT Osteoarthritis Surgical History History of appendectomy History of colonoscopy History of repair of rotator cuff right History of tooth extraction History of total knee replacement RT Hx of hernia repair Social History Smoking Status: Never smoker Second Hand Exposure: No; Hx Alcohol Use: Yes Alcohol type: wine Hx Substance Use: No Preferred Language: Divehi Communication Ability: Effective 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 Beliefs That Will Affect Care: None Current Living Situation: Spouse Feels Safe at Home: Yes Safety Concerns: Feels Safe At This Time Assistive Devices: None Review of Systems Review of Systems: All systems reviewed & are unremarkable except as noted in HPI & below Physical Exam 2 Constitutional: WD/WN, vitals as above Eyes: + anicteric sclerae; normal pupil size ENMT: external ear and nose normal, oropharynx normal Neck: trachea midline, no thyromegaly Respiratory: Auscultation: + diminished lung sounds and + crackles (bilateral lower extemity) Cardiovascular: RRR, no murmur, no edema Gastrointestinal (Abdomen): normal bowel sounds, soft, nontender, no hepatosplenomegaly Musculoskeletal: no cyanosis or clubbing, extremities motor strength 5/5 Skin: no rashes, warm and dry Neurologic: moves all extremities and awake; no focal motor deficits and not confused Speech / Cognition: normal speech Psychiatric: A+Ox3, euthymic affect Genitourinary: no CVA tenderness Lymphatic: no cervical or axillary lymphadenopathy Results & Data Results & Data ([facility]) Vital Signs (Past 12 Hours) Vital Signs Temp Pulse Pulse Resp BP BP Pulse Ox 10/11/20 10:29 96 10/11/20 10:28 72 16 143/83 H 88 L 10/11/20 09:48 90 18 148/91 H 91 10/11/20 09:07 36.5 C 92 H 20 127/81 98 Diagnostic Findings XR chest 1V portable IMPRESSION: Possible subtle bilateral lung airspace opacities which could reflect an infectious process. No consolidation identified. CT ANGIOGRAPHY OF THE CHEST, PULMONARY EMBOLUS PROTOCOL IMPRESSION: 1. No pulmonary emboli identified. 2. Moderate multifocal groundglass opacities within the lungs consistent with a viral pneumonia. Medications Administered ER medications given: NSS 500 mL bolus Zosyn 4.5 g IV Dexamethasone 10 mg IV ECG Indication: SOB/dyspnea Rate (beats per minute): 90 Rhythm: normal sinus Comparison ECG Date: from (December 29, 2013) Change: the following changes noted (Increased QRS amplitude, similar to EKG in 2008) Code Status & VTE Plan Code Status Full VTE Prophylaxis Plan VTE Prophylaxis will be ordered: Yes PG Care Time/CCT Total # of Minutes Spent Total Time Spent with Patient: Total time spent is greater than 50% in coordination of care (as documented) at patient's floor/unit and/or counseling patient: Coding Level of Care Code 68398 Initial Inpt Care Lvl 2 Diagnoses COVID-19 U07.1 Hypoxia R09.02 Hyperlipidemia E78.5 DVT prophylaxis Z29.9
[2020-10-11 12:26] LABS: D Dimer 710 ug/L FEU (0-500)
[2020-10-11 12:29] LABS: C Reactive Protein 4.59 mg/dl (0-0.29); Ferritin 619.3 ng/ml (8-388)
[2020-10-11] MEDS ORDERED: ONDANSETRON INJ 2 MG/ML 2 ML VIAL IV PRN (17:24)
[2020-10-11] MEDS ORDERED: ACETAMINOPHEN 325 MG TAB PO PRN (17:24)
[2020-10-11] MEDS ORDERED: POLYETHYLENE (MIRALAX) 17 GM PACK PO PRN (17:24)
[2020-10-11] MEDS ORDERED: NAPROXEN 250 MG TAB PO PRN (19:25)
[2020-10-11] MEDS ORDERED: ASPIRIN 81 MG ECTAB PO SCH (21:00)
[2020-10-11] MEDS ORDERED: PRAVASTATIN SOD 10 MG TAB PO SCH (21:00)
[2020-10-11] MEDS: ENOXAPARIN INJ 40 MG/0.4 ML SYR SQ SCH (21:15)
[2020-10-12] MEDS ORDERED: ARTIFICIAL TEARS OP OINT 3.5 GM TUBE OP PRN (03:50)
--- NOTE | 2020-10-12 06:14 | Electrocardiogram Report ---
Test Reason : Blood Pressure : / mmHG Vent. Rate : 090 BPM Atrial Rate : 090 BPM P-R Int : 180 ms QRS Dur : 096 ms QT Int : 352 ms P-R-T Axes : 025 -24 031 degrees QTc Int : 430 ms Normal sinus rhythm Normal ECG When compared with ECG of 29-DEC-2013 08:59, Nonspecific T wave abnormality, improved in Inferior leads Confirmed by Robert Obregon ([id number]) on 10/12/2020 6:13:46 AM Referred By: U Confirmed By:Robert Obregon
[2020-10-12 08:07] LABS: Hematocrit (blood only) 41.1 % (42-52); Hemoglobin 13.8 g/dL (14.0-18.0); Lymphocytes # (auto) 0.28 K/uL (1.2-3.4); Lymphocytes % (auto) 10.1 %; Mean Corpuscular Hemoglobin 31.1 pg (25-34); Mean Corpuscular Hgb Conc 33.6 g/dL (32-36); Mean Corpuscular Volume 92.6 fL (80-100); Mean Platelet Volume 10.9 fL (7.4-10.4); Monocytes # (auto) 0.23 K/uL (0.11-0.59); Monocytes % (auto) 8.3 %; Neutrophils # (auto) 2.25 K/uL (1.4-6.5); Neutrophils % (auto) 81.6 %; Platelet Count 135 K/uL (130-400); RDW Coefficient of Variation 12.1 % (11.5-14.5); RDW Standard Deviation 41.1 fL (36.4-46.3); Red Blood Count 4.44 M/uL (4.7-6.1); White Blood Count 2.76 K/uL (4.8-10.8)
[2020-10-12 08:33] LABS: BUN Creatinine Ratio 17.2 (10-20); Calcium 8.2 mg/dl (8.5-10.1); Creatinine Clr Calc Pharmacy 78.5 ml/min; Est GFR (African American) 95.3; Est GFR (Non-African American) 82.2; Potassium 3.6 mmol/L (3.5-5.1)
[2020-10-12] MEDS ORDERED: DEXAMETHASONE SOD INJ 4 MG/ML VIAL IV SCH (09:00)
[2020-10-12] MEDS ORDERED: dexAMETHasone 6 MG in SYRINGE 0 ML IV SCH (09:00)
[2020-10-12] MEDS: ENOXAPARIN INJ 40 MG/0.4 ML SYR SQ SCH (09:05)
--- NOTE | 2020-10-12 14:18 | History & Physical Bridge Note ---
Date of Service October 12, 2020 History & Physical Bridge Note I have examined the patient, reviewed the History & Physical and in the interval since the performance of the History & Physical I have noted the following changes of clinical significance: By CMS guidelines, a determination that the admission or continued stay is not medically necessary has been made by a member of the UR committee and a physician for this hospital stay, therefore a Code 44 will be completed and the Inpatient admission will be changed to outpatient.
--- NOTE | 2020-10-12 14:20 | Discharge Summary ---
Date of Service October 12, 2020 Admission HPI Per Admitting Provider Akhil Lang is a 75-year-old male who presents to the ER with worsening shortness of breath, fatigue and myalgias. Initially tested positive for COVID- 19 12 days ago, but had symptoms for 2 days prior to this. Intermittently felt he was improving however now feels he is getting worse for the last 4 to 5 days. Symptoms including generalized muscle aches, fatigue, insomnia, poor appetite, diarrhea, shortness of breath, dry cough. In the ER chest x-ray and CT were consistent with COVID-19 pneumonia. Given worsening symptoms he was covered for bacterial pneumonia with Zosyn IV. He was hypoxic 88% on room air and does not usually wake oxygen at home. He lives with his and has good family support at home. He was referred to medicine for admission and ongoing management of COVID-19 pneumonia and hypoxia. Principal Diagnosis COVID 19 pneumonia Discharge Exam Constitutional WD/WN, vitals as above Eyes PERRL, conjunctivae normal, anicteric sclerae Neck trachea midline, no thyromegaly Respiratory normal respiratory effort, lungs clear to auscultation Cardiovascular RRR, no murmur, no edema Gastrointestinal (Abdomen) normal bowel sounds, soft, nontender, no hepatosplenomegaly Musculoskeletal no cyanosis or clubbing, extremities motor strength 5/5 Skin no rashes, warm and dry Neurologic patellar DTR's 2+ bilat, sensation intact and PERRL, EOMI, accommodation nl, no face palsy, no dysarthria Psychiatric A+Ox3, euthymic affect Lymphatic no cervical or axillary lymphadenopathy Discharge Data Allergies Allergy/AdvReac Type Severity Reaction Status Date / Time No Known Allergies Allergy Verified 10/11/20 10:06 Consultations 10/11/20 11:55 ED Decision to Admit Stat Ordered Studies 10/11/20 10:44 CT angio chest PE protocol Stat Hospital Course (1) COVID-19: 14 days from initial symptoms however given worsening symptoms and increased inflammatory markers will treat with dexamethasone 6 mg IV daily for 10 days. Isolation cautions - airborne and droplet No indication for further antibiotics with negative procalcitonin, chest x-ray and CT findings. patient felt a lot better on day of discharge, breathing easier, no fever/chills, eating well walked with respiratory therapy, never required oxygen will send home on 6 more days of Dexamethasone, Zithromax for 5 days stay well nourished, well hydrated now that he is 14 days from original symptoms he would not have to isolate follow up with PCP (2) Hypoxia: Aim O2 sats > 90 %. 6 minute walk test on day of discharge showed that he did not need oxygen at rest or on exertion instructed to self monitor for breathing issues, if he feels short of breath check a pulse ox and if < 88% come to the hospital ED (3) Hyperlipidemia: Continue pravastatin 10 mg p.o. at bedtime (4) Positive blood culture: one of four cultures negative, gram positive cocci final culture was coag neg staph, most likely a contaminant Total Time Total Time Spent Total Time Spent (In Minutes): 33 minutes Total Time Includes: Examination of the Patient, Discharge Planning and Medication Reconciliation Discharge Plan Discharge Items Patient Disposition: Home - Self-Care Reason For Visit: COVID-19, HYPOXIA Discharge Diagnosis: COVID 19 pneumonia Condition on Discharge: Good Goals: stay well hydrated and well nourished, get rest complete course of Decadron and Zithromax Activity: Resume your previous activity Non-emergency contact: Primary Care Provider Call non-emergency contact if: you have any medication questions, your symptoms worsen and you have a fever Follow-up/Referrals: Jose Limon, [Primary Care Provider] - (one week) Diet: Regular Addtl Attending Provider Instructions: Medications: - DEXAMETHASONE: 6mg daily for 6 more days, start tomorrow morning - ZITHROMAX: complete Z pack, can start with 500mg dose this evening, then 250mg daily x 4 days, can take tomorrow's dose in the morning COVID 19 pneumonia moderate pneumonia seen on CT of the chest, no blood clots seen breathing well on room air, walked with respiratory therapy and you never required oxygen on exertion stay well hydrated, well nourished, get rest you can monitor yourself for worsening symptom such as fever, shortness of breath if you feel short of breath, you can check your pulse ox on a finger pulse oximeter if you are less than 88% then you should come to the ED I would expect you to continue to improve over the next week Pending Studies at Discharge: No Stand-Alone Forms: My [facility] [employer], Smoking Cessation Medications and DC Order Prescriptions: New dexamethasone 2 mg tablet 6 mg PO DAILY 6 Days Qty: 18 RF: 0 azithromycin [Zithromax Z-Piyush] 250 mg tablet See Rx Instructions .ROUTE .COMPLEX Qty: 6 RF: 0 Continued pravastatin 10 mg Tablet 10 mg PO HS RF: 0 naproxen sodium [Aleve] 220 mg Tablet 220 mg PO Q12H PRN (Reason: Pain) RF: 0 aspirin 81 mg Tablet,Delayed Release (Dr/Ec) 81 mg PO HS RF: 0 Discharge Orders: Discharge Order (Routine); Ordered 10/12/20 Ordered By: Mitul Crow/Other Patient Handouts: 2019-nCoV, Disinfecting Your Home of COVID-19 Admission Data Admit Date/Time: 10/11/20 12:09 Attending Provider: Mitul Downing Admit Provider: Fausto Quintana Primary Care Provider: Jose Limon Other Providers: Fausto Quintana Other Interventions: Discharge Summary Assessment (RN) Last Done: 10/12/20 14:36 Coding Level of Care Code 54454 OBS Care - Discharge Diagnoses COVID-19 U07.1 Hypoxia R09.02 Hyperlipidemia E78.5 Positive blood culture R78.81
== END 2020-10-12 15:41 | disposition home or self-care (01) ==
LOC: ED 09:03 → SUATTDRO 12:09 → EDINP 12:09 → INTOOBSV 12:09 → 3E 17:20

== ENCOUNTER 2021-05-08 05:14 | Observation (INO) ==
--- NOTE | 2021-04-16 08:39 | PAT Medication Instructions ---
Medication Instructions Date of Service April 16, 2021 Home Medications pravastatin 10 mg PO HS naproxen sodium [Aleve] 220 mg PO Q12H PRN aspirin 81 mg PO HS amoxicillin 2,000 mg PO UD Continue as directed amoxicillin 2,000 mg PO UD (if needed) ASK your surgeon for instructions naproxen sodium [Aleve] 220 mg PO Q12H PRN Take evening before surgery pravastatin 10 mg PO HS aspirin 81 mg PO HS OTHERWISE NOTHING TO EAT OR DRINK AFTER MIDNIGHT Other Notes If you have any questions please call us at [phone] or [phone] or [phone] or [phone]
--- NOTE | 2021-04-16 09:40 | Anesthesiology Consultation ---
Date of Service April 16, 2021 Assessment & Plan (1) Encounter for pre-operative examination: Chart Review Chart Review: Acceptable Risk for Surgery (pending surgeon ordered PCP clearance and preop Covid testing results ) and Patient NOT seen in Pre Admission Testing Awaiting surgeon ordered PCP clearance * Vertigo - triggered by rolling over/laying down/sitting up quickly as well with prolonged neck extension Per PAT appt 04/16/21, pt traveled to [place] to visit family. Pt does not wear mask in public. Pt is fully vaccinated for Covid. No known Covid positive contacts or Covid related symptoms. No known Covid infection in the past 90 days. Pt aware of need for preop Covid testing (educated patient usually done 2- 3 days prior to surgery) and to follow with surgeon's office = will await results. Educated on importance of self quarantining, social distancing and wearing mask in public both for the patient after Covid testing done Teaching & Discussion Pre-Anesthesia Teaching/Discussion Notes: Instructed NPO after midnight before surgery,except medications with 15 cc of water. Medication instructions provided according to the [facility] guidelines. History Surgery Operation Date: 05/08/21 09:20 Proposed Procedures p Right Total Hip Arthroplasty - Matthew Marrufo MD Height/Weight Height: 6 ft Weight: 86.183 kg Allergies Allergy/AdvReac Type Severity Reaction Status Date / Time No Known Allergies Allergy Verified 04/16/21 07:34 Medications Home Medications Medication Instructions Recorded Confirmed Last Taken pravastatin 10 mg PO HS 09/02/18 04/16/21 10/10/20 naproxen sodium [Aleve] 220 mg PO Q12H PRN 07/11/20 04/16/21 10/10/20 17:00 440 mg aspirin 81 mg PO HS 10/11/20 04/16/21 10/10/20 amoxicillin 2,000 mg PO UD 04/16/21 04/16/21 Unknown Past Medical History Medical History GERD (gastroesophageal reflux disease) Well controlled and stable History of COVID-19 09/2020 fever, aches, sob, cough admitted to [facility] with COVID pneumonia no symptoms Hyperlipidemia Lumbar spondylosis Osteoarthritis Exercise / Class Metabolic Activity II 4-5 Yardwork/Stairs/Walk up muddy (one flight of stairs - no chest pain or SOB ) Past Surgical History Surgical History History of appendectomy History of colonoscopy History of repair of rotator cuff right History of tooth extraction History of total knee replacement RT Hx of hernia repair Past Anesthesia History No Hx of Anesthesia Complications and No Family Hx of Anesthesia Complications History of PONV No Hx of PONV and No Hx of Motion Sickness Social History Smoking Status: Never smoker Do You Dip or Chew Tobacco: No Hx Alcohol Use: Yes Alcohol type: wine alcohol intake frequency: a few times a month Hx Substance Use: No substance use type: does not use Review of Systems Patient denies chest pain, shortness of breath, dyspnea on exertion, cough, wheezing, palpitations. No hx of seizures, stroke, NH, apnea/snoring. No hx of blood clots or blood transfusions Physical Exam Vital Signs VITALS BP 150/73 P 54 TEMP 97.8 SP02 97 % RESP 16 Constitutional no acute distress ENMT Mouth: no TMJ clicking Thyromental Distance: > or= 3.5 Finger Breadths (3.5) Mallampati Class: II Missing molar Permanent implants included front left side teeth Neck + limited neck extension (significant ) Respiratory normal respiratory effort; no respiratory distress Auscultation: lungs clear to auscultation bilaterally; no wheezes Cardiovascular Rate/Rhythm: regular rate and regular rhythm Heart Sounds: no murmur Vessels: no carotid bruit Musculoskeletal Spine: no pain with cervical ROM Extremities: extremities normal to inspection Psychiatric Orientation: alert Lab Results Anesthesia Preop Results Results Anesthesia Widget: WBC 2.92 K/uL (4.8-10.8) L 04/16/21 Hgb 13.7 g/dL (14.0-18.0) L 04/16/21 Hct 41.0 % (42-52) L 04/16/21 Plt 165 K/uL (130-400) 04/16/21 Na 142 mmol/L (136-145) 04/16/21 K 4.1 mmol/L (3.5-5.1) 04/16/21 Cl 108 mmol/L (98-107) H 04/16/21 CO2 31 mmol/L (21-32) 04/16/21 BUN 15 mg/dl (7-18) 04/16/21 Creat 0.80 mg/dl (0.6-1.4) 04/16/21 Glucose Level 88 mg/dl (70-99) 04/16/21 PT 10.9 Seconds (9.0-12.0) 04/16/21 INR 1.1 (0.9-1.1) 04/16/21 HA1c 5.4 % (4.5-5.6) 04/16/21 Urine Color Yellow 04/16/21 Urine Appearance Clear (Clear) 04/16/21 Urine pH 5.0 (4.5-7.5) 04/16/21 Urine Specific [place] 1.025 (1.000-1.030) 04/16/21 Urine Protein Negative (Negative) 04/16/21 Urine Glucose (UA) Negative (Negative) 04/16/21 Urine Ketones Trace (Negative) H 04/16/21 Urine Blood Negative (Negative) 04/16/21 Urine Nitrite Negative (Negative) 04/16/21 Urine Bilirubin Negative (Negative) 04/16/21 Urine Urobilinogen Negative (Negative) 04/16/21 Urine Leukocyte Esterase Negative (Negative) 04/16/21 Blood Type O Positive 04/16/21 Antibody Screen NEGATIVE 04/16/21 Lab Comments: *Leukocytopenia stable since or before 09/2020; did inform surge on's office Testing Electrocardiogram Date: 04/16/21 Findings: + SB @ (51bpm ) Otherwise normal EKG per cardio. Chest X-Ray Date: 04/16/21 Findings: + NAD
--- NOTE | 2021-04-16 16:57 | History & Physical Report ---
Date of Service April 16, 2021 Assessment & Plan Admission and Anticipated Discharge Date Admission Date: PRE-OP Diagnosis: Right hip osteoarthritis Planned Procedure: Right total hip arthroplasty Plan: Patient is scheduled to undergo this procedure at [facility] on May 08, [address] Matthew Marrufo. Risks and complications of the procedure such as: Infection, bleeding, pain, scarring, nerve blood vessel damage, weakness, wound problems, stiffness, incomplete relief of symptoms, hardware failure, hardware loosening, wear, fracture, tendon or ligament injury, dislocation, leg length inequality, blood clots, embolism, heart attack, stroke and were explained to the patient has visit today by Dr. Marrufo. Informed consent to perform the procedure was obtained. Patient also understands risks of proceeding with surgical intervention during the COVID-19 pandemic. Currently he is asymptomatic and understands he will need to be tested 2 to 3 days prior to his surgery. Patient states that he has an appointment with anesthesia at the hospital later this morning and while there we will obtain a CBC with differential, complete metabolic panel, PT/INR, blood type and screen, urinalysis, urine culture and sensitivity, EKG, hemoglobin A1c and a nasal culture for MRSA. He states that he also has an appointment with his primary care provider Dr. Limon on April 23 for preoperative medical clearance. During today's visit we reviewed total hip precautions went through the total hip packet, discussed antibiotic use following joint placement surgery talked about lectures offered by [facility] via zoom in regards to joint surgery. We talked about discharge planning, purchasing a hip kit, a walker, a raised toilet seat, a shower chair and I provided him with paperwork to obtain a handicap placard for his vehicle. Advised the patient that he will be discharged from the hospital on an opioid analgesic for postoperative pain control as well as the anti-inflammatory medication. We will have him take a baby aspirin twice daily for 1 month following surgery for blood clot prevention. Patient is scheduled to see me for his 2-week postoperative follow-up visit on May 20 at 1:30 PM. He verbalizes understanding of all information provided during today's visit. He thanks for the care that he received. If he has questions or concerns should arise prior to surgery, he will contact clinic. History of Present Illness Chief Complaint: Chief Complaint: Right hip pain Primary Care Provider: Jose Limon DO History of Present Illness (including history relevant to procedure): This 76-year-old male presents the clinic today for his preoperative history and physical. He has received 2 shots in the past, 1 intra-articularly and the second was an epidural for radicular type of symptoms. He says both of these shots have helped him quite a bit. He is currently able to walk 2 miles every morning. He says he is fine while he is walking, but does get a little bit stiff later in the afternoon. He says sitting in the car for longer than an hour can bother him. He takes 2 Aleve a day and this also gives him relief. Patient states that since his last visit the pain is localized to his groin and really affects him at the end of the day. He states that he is ready to proceed with total hip arthroplasty. Review Of Systems: A 14 point review of systems performed is unremarkable except for those things stated in the HPI and past medical history. Past Medical History: Problems: Right lumbar radiculopathy S/P right rotator cuff repair Torn rotator cuff Preop examination Arthritis of right hip GERD Dyslipidemia OTHER SEBORRHEIC KERATOSIS ACTINIC KERATOSIS Procedure History Procedure Procedure Date Comments Tonsillectomy Appendectomy Colonoscopy normal - 2007 Surgery 09/13/2018 - rotator cuff R shoulder Right shoulder 09/11/2018 - torn rotater cuff repair Right groin ultrasound 07/15/2018 - Impression:1. Small fat containing reducible right lower quadrant abdominal wall hernia adjacent to an appendectomy scar. This may reflect an incisional hernia. 2. No right inguinal hernia. Skeletal X-ray of pelvis and hip right 07/15/2018 - Impression:1. Mild degenerative changes.2. No acute fractures3. No destructive lesions are visualized on conventional radiographic imaging Colonoscopy 04/05/2017 - non-bleeding internal hemorrhoidsone 3 mm polyp in the sigmoid colon, removed with a cold biopsy forceps. Resected and retrieved knee surgery 12/23/2013 - 1970s Allergies and Sensitivities: NKA Social history: Patient states he consumes approximately 1 alcoholic beverage per week. He denies tobacco or illicit drug use. Family history: Hyperlipidemia, COPD and congestive heart failure Current Home Meds: (Last Updated 04/16 08:28) aspirin (aspirin 81 mg oral tablet) 81 mg PO Daily naproxen (Aleve 220 mg oral tablet) 220 mg PO q8h PRN: as needed for arthritis pravastatin (pravastatin 10 mg oral tablet) TAKE 1 TABLET AT BEDTIME Allergies Allergy/AdvReac Type Severity Reaction Status Date / Time No Known Allergies Allergy Verified 04/16/21 07:34 Home Medications Medication Instructions Recorded Confirmed Type pravastatin 10 mg PO HS 09/02/18 04/16/21 History naproxen sodium [Aleve] 220 mg PO Q12H PRN 07/11/20 04/16/21 History aspirin 81 mg PO HS 10/11/20 04/16/21 History amoxicillin 2,000 mg PO UD 04/16/21 04/16/21 History Past Med/Surg History Medical History GERD (gastroesophageal reflux disease) Well controlled and stable History of COVID-19 09/2020 fever, aches, sob, cough admitted to [facility] with COVID pneumonia no symptoms Hyperlipidemia Lumbar spondylosis Osteoarthritis Surgical History History of appendectomy History of colonoscopy History of repair of rotator cuff right History of tooth extraction History of total knee replacement RT Hx of hernia repair Social History Smoking Status: Never smoker Second Hand Exposure: No; Hx Alcohol Use: Yes Alcohol type: wine Hx Substance Use: No Preferred Language: Qatari Communication Ability: Effective Ladle Patcher Required: No Beliefs That Will Affect Care: None Current Living Situation: Spouse Feels Safe at Home: Yes Assistive Devices: Glasses Review of Systems All systems reviewed & are unremarkable except as noted in Subjective Physical Exam Physical Exam: Physical Exam: (relevant to the procedure, including heart and lung evaluation) General: Alert and oriented x3 with proper grooming and hygiene Eyes: Pupils are equal and react to light with accommodation. Extraocular movements are intact Throat: Deferred due to COVID-19 precautions Cardiac: Regular rate and rhythm with no murmurs or gallops appreciated Lungs: Clear to auscultation throughout with no wheezing, rales or rhonchi Abdomen: Nonobese, nondistended, nontender with normoactive bowel sounds Extremities: Examination of the right hip reveals good preservation of his range of motion with flexion up to 115 degrees, external rotation of 50 degrees, and internal rotation of 10 degrees. MOSES test shows his knee to bed distance of about 14 inches and this is symmetric bilaterally. Negative Stinchfield test. Neuro: Cranial nerves II through XII are intact no motor or sensory deficit Skin: Normal in appearance with no open skin areas or discharge Results & Data ([facility]) Diagnostic Findings Studies (relevant to the procedure): MRI done on April 01, 2021, is reviewed. This demonstrates severe osteoarthritic changes with irregularity of the cartilaginous surfaces, joint space narrowing, and some edema seen within the acetabular side of the joint as well as degenerative tearing in the labrum.
[2021-05-08] MEDS ORDERED: CeleBREX 200 MG CAP PO SCH (06:00)
[2021-05-08] MEDS ORDERED: TRANEXAMIC ACID 1,000 MG **IV Intra-op IV SCH (06:00)
[2021-05-08] MEDS ORDERED: LR 500ML BOLUS, THEN 15ML/HR IV SCH (06:00)
[2021-05-08] MEDS ORDERED: dexAMETHasone 4 MG TAB PO SCH (06:00)
[2021-05-08] MEDS ORDERED: LR 60ML/HR IV SCH (06:00)
[2021-05-08] MEDS ORDERED: METOCLOPRAMIDE HCL 10 MG TABLET PO SCH (06:00)
[2021-05-08] MEDS ORDERED: FAMOTIDINE 20 MG TAB PO SCH (06:00)
[2021-05-08] MEDS ORDERED: traMADol HCL 50 MG TABLET PO SCH (06:00)
[2021-05-08] MEDS ORDERED: Scopolamine 1 MG TDSY TD SCH (06:00)
[2021-05-08] MEDS ORDERED: ROPIVACAINE 0.5% HCL/PF 150 MG, BUPIVACAINE 0.75% MPF 20 ML, EPINEPHrine 0.15 MG, Ketor... INFIL SCH (06:00)
[2021-05-08] MEDS ORDERED: ACETAMINOPHEN 500 MG TAB PO SCH (06:00)
[2021-05-08] MEDS ORDERED: TRANEXAMIC ACID 1,000 MG **IV Pre-op IV SCH (06:00)
[2021-05-08] MEDS ORDERED: ceFAZolin 2000MG 2,000 MG/15 ML SYR IV SCH (06:00)
[2021-05-08] MEDS ORDERED: BUPIVACAINE 0.5 % 5 MG/1 ML PF 10ML VIAL ONE (06:19)
[2021-05-08] MEDS ORDERED: MIDAZOLAM HCL 1 MG/ML 2ML VIAL ONE (06:33)
[2021-05-08] MEDS ORDERED: fentaNYL citrate 100 MCG/2 ML VIAL ONE (06:34)
[2021-05-08] MEDS ORDERED: LIDOCAINE 2% 2 ML VIAL/AMP(20MG/ML) INFIL ONE (06:37)
[2021-05-08] MEDS ORDERED: ONDANSETRON INJ 2 MG/ML 2 ML VIAL ONE (06:37)
--- NOTE | 2021-05-08 06:43 | History & Physical Bridge Note ---
Date of Service May 08, 2021 History & Physical Bridge Note I have examined the patient, reviewed the History & Physical and in the interval since the performance of the History & Physical I have noted the following changes of clinical significance: no changes noted
[2021-05-08] MEDS ORDERED: ORTHO JOINT ANESTHETIC ONE (06:47)
[2021-05-08] MEDS ORDERED: fentaNYL citrate 100 MCG/2 ML VIAL IV PRN (07:10)
[2021-05-08] MEDS ORDERED: PHENYLEPHRINE 100MCG/ML 5ML SYR IV PRN (07:10)
[2021-05-08] MEDS ORDERED: HYDROmorphone INJ 1 MG/ML SYRINGE IV PRN (07:10)
[2021-05-08] MEDS ORDERED: ONDANSETRON INJ 2 MG/ML 2 ML VIAL IV PRN ×2 (07:10→08:49)
[2021-05-08] MEDS ORDERED: ePHEDrine sulfate 50 MG/ML AMP IV PRN (07:10)
[2021-05-08] MEDS ORDERED: ATROPINE SULFATE 0.1 MG/ML 10ML SYR IV PRN (07:10)
[2021-05-08] MEDS ORDERED: LABETALOL HCL IV 5 MG/ML 20ML IV PRN (07:10)
[2021-05-08] MEDS ORDERED: PROPOFOL IV EMULSION 10 MG/ML 20 ML VIAL IV ONE (07:42)
[2021-05-08] MEDS ORDERED: ePHEDrine sulfate 50 MG/ML AMP ONE (07:46)
[2021-05-08] MEDS ORDERED: SODIUM CHLORIDE 0.9% INJ 10 ML VIAL ONE (07:46)
[2021-05-08] MEDS ORDERED: HYDROmorphone INJ 0.5 MG/0.5 ML SYR IV PRN (08:49)
[2021-05-08] MEDS ORDERED: oxyCODONE HCL IR 5 MG TAB (IMMEDIATE RELEASE) PO PRN (08:49)
[2021-05-08] MEDS ORDERED: diphenhydrAMINE 50 MG/ML VIAL IV PRN (08:49)
[2021-05-08] MEDS ORDERED: NALOXONE HCL 0.4 MG/1 ML VIAL/CARP IV PRN (08:49)
[2021-05-08] MEDS ORDERED: FLUCONAZOLE 50 MG TAB PO ONE (08:49)
[2021-05-08] MEDS ORDERED: bisacodyL 10 MG SUPP PR PRN (08:49)
[2021-05-08] MEDS ORDERED: TAMSULOSIN HCL 0.4 MG CAP PO PRN (08:49)
[2021-05-08] MEDS ORDERED: MAGNESIUM HYDROXIDE SUSP 30 ML UDC PO PRN (08:49)
[2021-05-08] MEDS ORDERED: ALUMINUM/MAGNESIUM SUSP 30 ML UDC PO PRN (08:49)
[2021-05-08] MEDS ORDERED: METOCLOPRAMIDE HCL INJ 5 MG/ML 2 ML VIAL IV PRN (08:49)
--- NOTE | 2021-05-08 08:49 | Operative Report ---
Post Operative Report Pre & Post Diagnosis Operation Date: 05/08/21 07:00 Pre-Op Diagnosis: Right Hip Osteoarthritis Post-Op Diagnosis: Right Hip Osteoarthritis I identified the patient and participated in the time-out.: Yes Procedure Operation Date: 05/08/21 07:00 Actual Procedures p Right Total Hip Arthroplasty(Right) - Matthew Marrufo MD Surgeon Matthew Marrufo MD Blade Bender Furnace Tender Checo Muir MD and JUANCHO August PA-C Estimated Blood Loss 200 Findings Consistent with Post-Op Diagnosis Degenerative osteoarthritis right hip Specimens Right femoral head Anesthesia Type Spinal MAC Indications 76-year-old male with right hip pain refractory to conservative management. X- rays demonstrate severe osteoarthritis. I had a long discussion with him about the risks and benefits of surgery, alternatives to surgery, and expected outcomes. After reviewing all these elected to proceed with surgery. All questions were answered. Informed consent was signed. Description of Procedure Patient was identified in the preoperative holding area and the surgical site, right hip, was marked. A spinal anesthetic was placed, then the patient was brought back to the main operating room, placed in the operating table and moved into the lateral decubitus position. Axillary roll was placed. All bony prominences were padded. Perioperative antibiotics and tranexamic acid 1 gram IV were administered. Operative extremity was prepped and draped in the normal sterile fashion. Prior to incision a multidisciplinary timeout was called. All in the room were in agreement. We began by making an incision for a posterior approach to the hip. We dissected down through subcutaneous tissues to the level of the fascia. The fascia was incised in line with the incision. Charnley bow was placed. The trochanteric bursa was excised. The piriformis and short external rotators were dissected off the posterior aspect of the hip. A box cut was made in the capsule. The femoral head was dislocated. The femoral neck cut was made at our preoperative template. The acetabulum was then exposed. The labrum was sharply excised. Contents of the cotyloid fossa were removed with electrocautery. We then began reaming at a size 8 mm less than our p reoperative template. We reamed up by [address] the way up to a size 56 mm cup. This gave us good bleeding cancellus bone circumferentially. The acetabulum was then irrigated out and dried. The real Phyllis Gription cup was then impacted down into position with 45 degrees of lateral opening and 25 degrees of anteversion. Two cancellous bone screws were placed up into the ilium. Excellent fixation was obtained. An Altrx polyethylene liner for a 36 mm femoral head was then impacted into the shell. The locking mechanism was checked to ensure that it had engaged which it had. Next we turned our attention to the femur. The lateral neck was removed with a box osteotome. Intramedullary guide was used followed by the lateralizing reamer. We then reamed up to a size 7 Box Elder stem. We then broached all the way up to a size 7. We began trialing with a high offset neck and a -2 head. Hip was reduced. Leg lengths were symmetric. The hip was stable in extension and external rotation, and stable in the sleeper position. At 90 degrees of hip flexion the hip could be internally rotated 75 degrees before levering out of the cup. I was very happy with the stability exam. Therefore the hip was dislocated and the femoral trial was removed. The femoral canal was irrigated and dried. The real size 7 high offset Box Elder femoral stem was opened up. This was impacted down into position. It sat at the same level as the femoral trial. Therefore the 36 mm metal femoral head with a -2 mm offset was opened up and gently impacted down onto the trunnion. The hip was atraumatically reduced. Another 1 gram of IV tranexamic acid was started prior to closure. The wound was irrigated out with sterile Betadine solution. The periarticular injection cocktail was then placed. The short external rotators, piriformis, and posterior capsule were repaired through drill holes in the greater trochanter using #2 Vicryl. The fascia was run with a looped #1 PDS. The subcutaneous layer was closed with #1 PDS. The dermal layer was closed with 2-0 Vicryl. Zip line was used for the skin followed by a Silverlon dressing. A compressive dressing was then placed. The patient was then rolled supine. Leg lengths were rechecked and were symmetric. An abduction pillow was placed. Sedation was lifted and the patient was transferred to recovery room in stable condition. Summary of implants: Depuy Phyllis Gription Acetabular Shell Sector Cup, 56 mm outer diameter 2 Phyllis Cancellous bone screws, 6.5 x 40 mm and 6.5 x 25 mm Phyllis Altrx Polyethylene Acetabular Liner, Neutral, with a 36 mm inner diameter DePuy Box Elder Femoral stem with Porocoat, 12/14 taper, size 7 high offset 36 mm metal femoral head with -2 offset Postoperative course: Patient will be admitted to the hospital from the recovery room. Patient will be weightbearing as tolerated with posterior hip precautions. Aspirin for DVT prophylaxis I attest to the content of the Intraoperative Record and any orders documented therein. Any exceptions are noted below.
--- NOTE | 2021-05-08 08:49 | Operative Report ---
Post Operative Report Pre & Post Diagnosis Operation Date: 05/08/21 07:00 Pre-Op Diagnosis: Right Hip Osteoarthritis Post-Op Diagnosis: Right Hip Osteoarthritis I identified the patient and participated in the time-out.: Yes Procedure Operation Date: 05/08/21 07:00 Actual Procedures p Right Total Hip Arthroplasty(Right) - Matthew Marrufo MD Surgeon Matthew Marrufo MD Body Line Finisher Checo Muir MD; Ariel August PA-C Estimated Blood Loss 200 Findings Consistent with Post-Op Diagnosis Severe osteoarthitis of Right hip Specimens femoral head Description of Procedure I was present during the entire procedure assisting with positioning, prepping, draping, wound retraction, wound closure, dressing and abduction pillow placement. Fellow also present. I served as an extra set of hands during the case. Please see Dr. Marrufo procedure note for specifics of the case. I attest to the content of the Intraoperative Record and any orders documented therein. Any exceptions are noted below.
[2021-05-08] MEDS ORDERED: AMOXICILLIN 500 MG CAP PO SCH (09:00)
[2021-05-08] MEDS ORDERED: ASPIRIN 81 MG ECTAB PO SCH (09:00)
--- NOTE | 2021-05-08 09:20 | Anesthesiology Progress Note ---
Date of Service May 08, 2021 Anesthesia Post Procedure Vital Signs Vital Signs: Temp Pulse Pulse Resp BP Pulse Ox 05/08/21 09:15 68 15 124/82 97 05/08/21 09:05 75 12 101/51 L 98 05/08/21 08:55 70 15 127/66 94 05/08/21 08:48 36.7 C 76 15 124/97 99 05/08/21 05:46 36.6 C 58 L 20 167/86 H 97 Pain Intensity Right Hip: Pain Intensity: 2 Transfer of Care Handoff Completed per policy Notes Mental Status: alert / awake / arousable Patient Amnestic to Procedure: Yes Nausea / Vomiting: adequately controlled Pain: adequately controlled Airway Patency, RR, SpO2: stable & adequate BP & HR: stable & adequate Hydration State: stable & adequate Neuraxial Anesthesia: was administered and sensory block is resolving Anesthetic Complications: no major complications apparent and Pt Satisfied with anesthetic care
--- NOTE | 2021-05-08 09:25 | XRay Report ---
XR pelvis 1-2V routine HISTORY: 76 years-old Male Post Surgical right hip total joint arthroplasty COMPARISON: Pelvis radiograph 04/16/2021 TECHNIQUE: AP view of the pelvis FINDINGS: Right hip total joint arthroplasty. Expected postoperative soft tissue swelling and deep tissue air. Mild left hip osteoarthritis. No acute fracture, malalignment or opaque foreign body. IMPRESSION: Right hip total joint arthroplasty with expected postoperative changes. ACT 112: Negative or not required by law. The above report was generated using voice recognition software. It may contain grammatical, syntax o r spelling errors. Electronically signed by: Marquise Villagran M.D. 05/08/2021 9:24 AM
[2021-05-08] MEDS: SODIUM CHLORIDE 0.9% 1000ML 1,000 ML IV SCH ×2 (09:45→19:35)
[2021-05-08] MEDS: DOCUSATE SODIUM 100 MG CAP PO SCH ×2 (11:35→19:47)
[2021-05-08] MEDS: MULTIVITAMIN TAB PO SCH (11:36)
[2021-05-08] MEDS: ASPIRIN 81 MG ECTAB PO SCH ×2 (11:36→19:47)
[2021-05-08] MEDS: KETOROLAC TROMETHAMINE 15 MG/ML VIAL IV SCH ×3 (11:56→22:39)
[2021-05-08] MEDS ORDERED: TRANEXAMIC ACID / 0.7% NACL 1,000 MG/100 ML BAG IV SCH (15:00)
[2021-05-08] MEDS: ACETAMINOPHEN 500 MG TAB PO SCH ×2 (15:04→22:37)
[2021-05-08] MEDS: ceFAZolin 2000MG 2,000 MG/15 ML SYR IV SCH ×2 (15:26→22:40)
[2021-05-08] MEDS: Scopolamine CHECK PATCH PLACEMENT SCH ×2 (16:30→23:07)
[2021-05-08] MEDS ORDERED: SENNA 8.6 MG TAB PO SCH (21:00)
[2021-05-08] MEDS ORDERED: PRAVASTATIN SOD 10 MG TAB PO SCH (21:00)
[2021-05-09] MEDS: KETOROLAC TROMETHAMINE 15 MG/ML VIAL IV SCH (05:24)
[2021-05-09] MEDS: ACETAMINOPHEN 500 MG TAB PO SCH ×2 (05:24→13:05)
--- NOTE | 2021-05-09 06:35 | Operative Report ---
Post Operative Report Pre & Post Diagnosis Operation Date: 05/08/21 07:00 Pre-Op Diagnosis: Right Hip Osteoarthritis Post-Op Diagnosis: Right Hip Osteoarthritis I identified the patient and participated in the time-out.: Yes Procedure Operation Date: 05/08/21 07:00 Actual Procedures p Right Total Hip Arthroplasty(Right) - Matthew Marrufo MD Surgeon Matthew Marrufo MD Business Support Manager Checo Muir MD; Ariel August PA-C Estimated Blood Loss 200 Findings Consistent with Post-Op Diagnosis Right hip severe osteoarthritis Specimens Femoral head Description of Procedure As per Dr. Marrufo's note, I assisted in prepping and draping, instruments handling, certain parts of the procedure and wound closure I attest to the content of the Intraoperative Record and any orders documented therein. Any exceptions are noted below.
[2021-05-09] MEDS ORDERED: dexAMETHasone 4 MG TAB PO SCH (08:00)
[2021-05-09 08:12] LABS: Hematocrit (blood only) 37.6 % (42-52); Hemoglobin 12.3 g/dL (14.0-18.0); Immature Granulocytes # (auto) 0.01 K/uL (0.00-0.02); Immature Granulocytes % (auto) 0.1 %; Lymphocytes # (auto) 0.64 K/uL (1.2-3.4); Mean Corpuscular Hemoglobin 31.4 pg (25-34); Mean Corpuscular Hgb Conc 32.7 g/dL (32-36); Mean Corpuscular Volume 95.9 fL (80-100); Mean Platelet Volume 10.2 fL (7.4-10.4); Monocytes # (auto) 0.89 K/uL (0.11-0.59); Monocytes % (auto) 8.3 %; Neutrophils # (auto) 9.15 K/uL (1.4-6.5); Neutrophils % (auto) 85.6 %; Platelet Count 168 K/uL (130-400); RDW Standard Deviation 44.8 fL (36.4-46.3); Red Blood Count 3.92 M/uL (4.7-6.1); White Blood Count 10.69 K/uL (4.8-10.8)
[2021-05-09] MEDS: ASPIRIN 81 MG ECTAB PO SCH (08:28)
[2021-05-09] MEDS: DOCUSATE SODIUM 100 MG CAP PO SCH (08:28)
[2021-05-09] MEDS: MULTIVITAMIN TAB PO SCH (08:28)
[2021-05-09] MEDS: Scopolamine CHECK PATCH PLACEMENT SCH (08:28)
[2021-05-09 08:53] LABS: BUN Creatinine Ratio 15.1 (10-20); Calcium 8.9 mg/dl (8.5-10.1); Creatinine Clr Calc Pharmacy 71.9 ml/min; Est GFR (African American) 89.9 ml/min; Est GFR (Non-African American) 77.6 ml/min; Potassium 4.4 mmol/L (3.5-5.1)
--- NOTE | 2021-05-09 09:40 | Orthopedic Progress Note ---
Date of Service May 09, 2021 Assessment & Plan (1) S/P total hip arthroplasty: Plan: Weightbearing as tolerated with walker assistance Total hip precautions reviewed Pain control with p.o. medication DVT prophylaxis with aspirin and YUSEF stockings Ice with EZ wrap Abduction pillow use x6 weeks Plan on discharge home today with in-home physical therapy for the first 2 weeks Postoperatively Keep Silverlon dressing in place until follow-up [facility] at [facility]opedics as previously scheduled in 2 weeks With questions contact our clinic at [phone] Admission and Anticipated Discharge Date Admission Date: May 08, 2021 Subjective 76-year-old male is day 1 status post right total hip arthroplasty.He states he is doing very well. States his pain is well controlled with p.o. pain medication.He states that his dressing is saturated a bit. He has been able to transition from his bed to his walker to the restroom without diffic ulty.Currently he denies any chest pain, shortness of breath, fever, chills, sweats, lethargy, nausea, vomiting, diarrhea or numbness or tingling in his right lower extremity. Review of Systems Review of Systems: Review of systems unremarkable except for those things stated in the HPI Physical Exam Physical Exam: Right hip: Silverlon dressing saturated and leaking. It was removed. Zipper line was still intact. Site was lightly cleansed with a saline wipe and patted dry with sterile 4 x 4's. A new Silverlon was applied over the incision site.Patient is able to perform a straight leg raise test. He is able to actively dorsi and plantarflex his foot. Quad strength is 3 out of 5. Knee range of motion from 0 to 90 degrees causes no pain. Logroll test is negative. Light passive internal and external hip rotation causes no pain.Patient is neurovascularly intact in the right lower extremity. Results & Data ([facility]) Vital Signs (Past 12 Hours) Vital Signs Temp Pulse Resp BP Pulse Ox 05/09/21 07:15 36.6 C 86 16 94/64 L 94 05/09/21 02:15 36.6 C 72 16 116/63 96 05/08/21 22:33 36.5 C 57 L 16 104/55 L 94 Laboratory Results 05/09/21 05/09/21 Range/Units 07:36 07:36 WBC 10.69 (4.8-10.8) K/uL RBC 3.92 L (4.7-6.1) M/uL Hgb 12.3 L (14.0-18.0) g/dL Hct 37.6 L (42-52) % MCV 95.9 (80-100) fL MCH 31.4 (25-34) pg MCHC 32.7 (32-36) g/dL RDW Std Deviation 44.8 (36.4-46.3) fL RDW Coeff of Kai 13.0 (11.5-14.5) % Plt Count 168 (130-400) K/uL MPV 10.2 (7.4-10.4) fL Immature Gran % (Auto) 0.1 % Neut % (Auto) 85.6 % Lymph % (Auto) 6.0 % [place] % (Auto) 8.3 % Eos % (Auto) 0.0 % Baso % (Auto) 0.0 % Neut # (Auto) 9.15 H (1.4-6.5) K/uL Lymph # (Auto) 0.64 L (1.2-3.4) K/uL [place] # (Auto) 0.89 H (0.11-0.59) K/uL Eos # (Auto) 0.00 (0-0.5) K/uL Baso # (Auto) 0.00 (0-0.2) K/uL Immature Gran # (Auto) 0.01 (0.00-0.02) K/uL Sodium 141 (136-145) mmol/L Potassium 4.4 (3.5-5.1) mmol/L Chloride 109 H (98-107) mmol/L Carbon Dioxide 30 (21-32) mmol/L Anion Gap 2.0 L (3-11) BUN 15 (7-18) mg/dl Creatinine 0.96 (0.6-1.4) mg/dl Est Cr Clr Drug Dosing 71.9 ml/min Est GFR ( Amer) 89.9 ml/min Est GFR (Non-Af Amer) 77.6 ml/min BUN/Creatinine Ratio 15.1 (10-20) Glucose 113 H (70-99) mg/dl Calcium 8.9 (8.5-10.1) mg/dl
--- NOTE | 2021-05-09 09:40 | Discharge Summary ---
Date of Service May 09, 2021 Admission HPI Per Admitting Provider History of Present Illness (including history relevant to procedure): This 76-year-old male presents the clinic today for his preoperative history and physical. He has received 2 shots in the past, 1 intra-articularly and the second was an epidural for radicular type of symptoms. He says both of these shots have helped him quite a bit. He is currently able to walk 2 miles every morning. He says he is fine while he is walking, but does get a little bit stiff later in the afternoon. He says sitting in the car for longer than an hour can bother him. He takes 2 Aleve a day and this also gives him relief. Patient states that since his last visit the pain is localized to his groin and really affects him at the end of the day. He states that he is ready to proceed with total hip arthroplasty. Review Of Systems: A 14 point review of systems performed is unremarkable except for those things stated in the HPI and past medical history. Past Medical History: Problems: Right lumbar radiculopathy S/P right rotator cuff repair Torn rotator cuff Preop examination Arthritis of right hip GERD Dyslipidemia OTHER SEBORRHEIC KERATOSIS ACTINIC KERATOSIS Procedure History Procedure Procedure Date Comments Tonsillectomy Appendectomy Colonoscopy normal - 2007 Surgery 09/13/2018 - rotator cuff R shoulder Right shoulder 09/11/2018 - torn rotater cuff repair Right groin ultrasound 07/15/2018 - Impression:1. Small fat containing reducible right lower quadrant abdominal wall hernia adjacent to an appendectomy scar. This may reflect an incisional hernia. 2. No right inguinal hernia. Skeletal X-ray of pelvis and hip right 07/15/2018 - Impression:1. Mild degenerative changes.2. No acute fractures3. No destructive lesions are visualized on conventional radiographic imaging Colonoscopy 04/05/2017 - non-bleeding internal hemorrhoidsone 3 mm polyp in the sigmoid colon, removed with a cold biopsy forceps. Resected and retrieved knee surgery 12/23/2013 - 1970s Allergies and Sensitivities: NKA Social history: Patient states he consumes approximately 1 alcoholic beverage per week. He denies tobacco or illicit drug use. Family history: Hyperlipidemia, COPD and congestive heart failure Current Home Meds: (Last Updated 04/16 08:28) aspirin (aspirin 81 mg oral tablet) 81 mg PO Daily naproxen (Aleve 220 mg oral tablet) 220 mg PO q8h PRN: as needed for arthritis pravastatin (pravastatin 10 mg oral tablet) TAKE 1 TABLET AT BEDTIME Admission Exam Per Admitting Provider Physical Exam: (relevant to the procedure, including heart and lung evaluation) General: Alert and oriented x3 with proper grooming and hygiene Eyes: Pupils are equal and react to light with accommodation. Extraocular mov ements are intact Throat: Deferred due to COVID-19 precautions Cardiac: Regular rate and rhythm with no murmurs or gallops appreciated Lungs: Clear to auscultation throughout with no wheezing, rales or rhonchi Abdomen: Nonobese, nondistended, nontender with normoactive bowel sounds Extremities: Examination of the right hip reveals good preservation of his range of motion with flexion up to 115 degrees, external rotation of 50 degrees, and internal rotation of 10 degrees. MOSES test shows his knee to bed distance of about 14 inches and this is symmetric bilaterally. Negative Stinchfield test. Neuro: Cranial nerves II through XII are intact no motor or sensory deficit Skin: Normal in appearance with no open skin areas or discharge Principal Diagnosis Right hip osteoarthritis Discharge Exam Right hip: Silverlon dressing saturated and leaking. It was removed. Zipper line was still intact. Site was lightly cleansed with a saline wipe and patted dry with sterile 4 x 4's. A new Silverlon was applied over the incision site.Patient is able to perform a straight leg raise test. He is able to actively dorsi and plantarflex his foot. Quad strength is 3 out of 5. Knee range of motion from 0 to 90 degrees causes no pain. Logroll test is negative. Light passive internal and external hip rotation causes no pain.Patient is neurovascularly intact in the right lower extremity. Discharge Data Allergies Allergy/AdvReac Type Severity Reaction Status Date / Time No Known Allergies Allergy Verified 05/08/21 05:43 Procedures Performed Operation Date: 05/08/21 07:00 Actual Procedures p Right Total Hip Arthroplasty(Right) - Matthew Marrufo MD Hospital Course (1) S/P total hip arthroplasty: Patient had an uneventful overnight stay following right total hip arthroplasty.Patient states he is doing very well and is very pleased with the r esults of his surgery.He is planning on discharge home today with in-home physical therapy for the first 2 weeks postoperatively. Total Time Total Time Spent Total Time Spent (In Minutes): 20 minutes Discharge Plan Discharge Items Patient Disposition: Home - Home Health Services Reason For Visit: Right Hip Arthritis Discharge Diagnosis: Right Hip osteoarthritis Activity: As commented below Lifting: None Bathing: Keep incision dry Bathing Comment: May shower tomorrow Sexual Activity: Wait until after follow-up appointment Exercise/Sports: Wait until after follow-up appointment Driving/Machine Use: No driving until cleared by record center specialist Weightbearing: Right weightbearing Weightbearing Comment: as tolerated with walker assistance Non-emergency contact: Primary Care Provider Call non-emergency contact if: you have any medication questions, your pain is not controlled, your temperature is above 101.5 and your wound pain has increased Follow-up/Referrals: Jose Limon, [Primary Care Provider] - Diet: Regular Addtl Attending Provider Instructions: Post-operative Instructions Dear Patient and Family/Friends, Before you are discharged from the hospital, it is important to know what to expect when you get home after surgery. To that end, we have created this sheet of discharge instructions which covers many commonly asked questions. Make sure you go through this sheet in its entirety with your nurse before you are discharged. Please note that we will go over the specifics of your surgery and recovery when you return for your first post-operative visit. Sincerely, Dr. Marrufo Medications 1. Oxycodone 5mg: take 1 tab every 4-6 hours as needed for post operative pain control. A prescription for 30 tabs will be sent to your pharmacy. 2. Diclofenac Sodium 75 mg: take 1 tab twice daily for 30 days post operatively for pain and inflammation relief. Do not take your Aleve while using this medication. 3. Aspirin 81 mg: increase your daily aspirin to twice daily for the first 30 days post operatively 4. Extra Strength Tylenol 500 mg: take 2 tabs every 6-8 hours for supplemental pain control following surgery. Please purchase. 5. Diflucan 150 mg tablet:Take 1 tablet dailyFor the next 7 days. A prescription for this medication will be sent to your pharmacy. Pain Expect to be in a fair amount of pain after surgery. Remember, our goal is not to eliminate your pain, but to make it tolerable. It is a good idea to stay ahead of your pain by taking the medications you were prescribed once you get home. Typically, the pain starts improving 3-7 days after surgery. You should start weaning off the narcotic pain medication (oxycodone, hydrocodone, hydromorphone, morphine) as soon as your pain improves. Please call our office if your pain is not adequately controlled. Ice Ice your operative site at least 5 times a day for 15-30 minutes at a time. Make sure you have a thin cloth between the ice or cooling unit and your skin to prev ent hamilton bite. This is especially important if you received a nerve block. Continue icing your operative site for the first 5-7 days after surgery, then as needed. Diet/Nausea/Vomiting Start by drinking clear liquids and eating crackers. If you can tolerate this, then you may resume your normal diet. If you feel nauseated or vomit, take Zofran/ondansetron (if prescribed). Please call our office if you have intractable nausea or vomiting, or, if after hours, you may go to the Emergency Room for help. Constipation Constipation is a common side effect of narcotic pain medication. If you have not had a bowel movement within 2 days after surgery, we recommend purchasing an over the counter laxative such as Milk of Magnesia, Dulcolax, or Miralax from a local pharmacy, and taking it as instructed. Call our clinic if any questions. Nerve block The anesthesia team sometimes places a nerve block to help with post-operative pain control. This results in significant numbness and inability to move the extremity. The nerve block usually wears off in 8-12 hours, but sometimes can last up to 24 hours. Please call our office if you are still unable to move your extremity after 24 hours, unless you received a pain pump to take home. Nerve blocks typically wear off quickly, so start taking pain medication as soon as you start feeling soreness near your surgical site. Weight bearing and Range of Motion. Do not bear any weight through your operative extremity immediately after s urgery. If you had upper extremity surgery, do not lift anything with that arm. If you are in a knee brace, keep it locked in place until your follow-up. We will discuss your weight bearing, range of motion, and lifting restrictions in detail at your first post-operative appointment. Continuous Passive Motion (CPM) Machine If you were prescribed a CPM machine, it will start after your first post- operative appointment, at which time we will give you instructions on the range of motion settings and duration of treatment Physical therapy You will be given a prescription for physical therapy or occupational therapy at your first post-operative appointment. Typically, patients start therapy within 1 week of surgery Wound care and showering We will inspect your wound at your first post-operative visit, and may do a dressing change at that time. Most patients will be in a water-proof dressing that is removed 14 days after surgery. It is normal to see some dried blood on the dressing. Do not remove your dressing, paper strips or sutures yourself unless you are given permission. Showering is allowed the day after surgery. Do not scrub or remove any dressings. The wound should not be submerged underwater (i.e. in a bathtub or pool) until 4 weeks after surgery YUSEF stockings If you were given white stockings, these are to be worn at all times except to shower (on both legs) for the first 2 weeks after surgery. Driving You may not drive while taking narcotic pain medication or while in a cast, splint, sling or brace. You, the patient, need to make the final determination about when you are safe to drive, however, the earliest you may consider driving after surgery is below: Hand/Wrist/Elbow Surgery: 3 days Shoulder Surgery: 2 weeks Hip,/Knee/Ankle Surgery: 4 weeks Fracture repair: 6 weeks Return to Work Your return to work depends on what surgery was done and what type of work you do. Please bring any paperwork your employer needs completed to your first post-operative visit. Also, bring a description of your job duties, as this helps us to understand what risks you may face at work. Travel Avoid long distance travel (greater than 1 hour) in airplanes and cars for the first 6 weeks after surgery. If you must travel, you need to have a Doppler ultrasound done before you travel to rule out a blood clot in your legs. Follow-up You should have a follow-up appointment already scheduled 1-2 days after surgery. If not, please contact our office to make this appointment before you leave the hospital. When to call the office It is normal to have swelling and bruising in the limb that was operated on. This will improve with time. It is also normal to have fevers for the first 2 days after surgery. Reasons you should call your doctor include: Uncontrolled pain; Nausea, vomiting, or constipation that does not improve with medication; Fevers over 101.5, chills, sweats; Drainage or bleeding from the wound; Foul odor; Spreading areas of redness; Any other concerns Pending Studies at Discharge: No Stand-Alone Forms: My [facility] Medications and DC Order Prescriptions: New oxycodone 5 mg tablet 5 mg PO Q4H MDD Initial prescription Qty: 30 RF: 0 diclofenac sodium 75 mg tablet,delayed release (DR/EC) 75 mg PO BID 30 Days Qty: 60 RF: 1 fluconazole [Diflucan] 150 mg tablet 150 mg PO DAILY 7 Days Qty: 7 RF: 0 Continued pravastatin 10 mg Tablet 10 mg PO HS RF: 0 amoxicillin 500 mg capsule 2,000 mg PO UD RF: 0 Changed aspirin 81 mg Tablet,Delayed Release (Dr/Ec) 81 mg PO BID Qty: 0 RF: 0 Discontinued naproxen sodium [Aleve] 220 mg Tablet 220 mg PO Q12H PRN (Reason: Pain) RF: 0 Discharge Orders: Discharge Order (Routine); Ordered 05/09/21 Ordered By: Rohan August Admission Data Admit Date/Time: 05/08/21 08:49 Attending Provider: Matthew Marrufo Admit Provider: Matthew Marrufo Primary Care Provider: Jose Limon
[2021-05-09] MEDS ORDERED: CeleBREX 200 MG CAP PO SCH (12:00)
== END 2021-05-09 13:22 | disposition home health service (06) ==
LOC: ASU 05:14 → 3E 05:14

== ENCOUNTER 2024-11-16 05:24 | Inpatient (IN) ==
[2024-11-16 06:36] LABS: Influenza A virus by PCR Negative (Neg); Influenza B virus by PCR Negative (Neg); RSV by PCR Negative (Neg); SARS CoV2 RNA(COVID-19) Ceph POSITIVE (Negative)
--- NOTE | 2024-11-16 06:42 | Emergency Department Note ---
Impression & Plan COVID-19, Hypoxia, Generalized weakness ED Provider Note NAME: SOLEDAD ERNANDEZ AGE: 79 SEX: M : 1945 ARRIVES VIA: Walk-In INFORMANT: Patient ED PROVIDER(S): Vaughn Rascon MD CHIEF COMPLAINT: Headache, feverishness, body aches PLAN: Disposition: Admit MEDICAL DECISION MAKING: The patient is a pleasant 79-year-old gentleman with a past medical history of hyperlipidemia who presents to the emergency department via walk-in for evaluation of cough, congestion, generalized bodyaches and headache over the past 24 hours. Patient reports he woke up yesterday morning feeling okay but progressively became worse throughout the day. His called emergency department to also inform that the patient had abdominal pain yesterday when he was moving furniture. Patient reports he does have fluctuating abdominal pain related to a suspected hernia that his primary care doctor knows about. He denies any nausea, vomiting, constipation or diarrhea. He denies any chest pain. He reports mild shortness of breath. He denies any pain with inspiration. On presentation to triage, the patient is fatigued appearing but no distress, afebrile with heart rate in the 100s and blood pressure 80s/50s and O2 saturation in the upper 80s on room air placed on 2 L nasal cannula. The patient's blood pressure did improve following IV fluid hydration per critical pathways. On my assessment the patient appears clinically dry. Boggy nasal turbinates. EOMI. No nystamgus. PEARRL. Lungs with subtle intermittent wheeze and otherwise mostly clear. Abdomen is nontender. Soft, small umbilical hernia without ttp, edema, or discoloration. CNII-XII grossly intact. 5/5 strength and SILT x 4 extremities. EKG without overt acute ischemia. CXR negative for acute cardiopulmonary process per my personal preliminary review/interpretation. WBC, H/H and platelets within normal limits. There is no left shift. Moderate lymphopenia is present at 0.59 consistent with COVID-19 subsequently positive on Cepheid PCR. Chemistry without metabolic acidosis. Electrolytes and LFTs unremarkable. TSH within normal limits. Lipase is normal. UA without evidence of infection. CTA of the chest was performed and was negative for PE or pneumonia. CT of the abdomen pelvis demonstrates umbilical hernia without evidence of obstruction or incarceration. CT of the head negative for acute abnormalities. Given the patient's mild hypoxia in the setting of his COVID-19 patient does agree with plan for admission for further management. Decadron was administered as well as IV fluid hydration. BP stable. SUZY Godwin PAC, with AMANDA Craig hospitalist to evaluate the patient for admission. Further management per admitting team. Triage Nursing notes reviewed and agree them. Prior/external medical records reviewed Vital Signs: reviewed Differential diagnosis: Infection, dehydration, metabolic abnormality, hypo/hyperglycemia, electrolyte disturbance, anemia, hypoxia, cardiac sources, intracerebral event, toxicologic, neurologic, as well as other pathologies. ER treatment provided: See below. Diagnostics interpreted by me: ECG: Normal sinus rhythm, 62 bpm, no ectopy, no overt ST elevation or depression, QTc 430, QRS 98. Cardiac Monitoring: An order for continuous cardiac monitoring was placed and demonstrated Normal sinus rhythm, 62 bpm, no ectopy Laboratory studies: See below Imaging studies: See below Consultation(s): SUZY Godwin PAC, with SUZY Craig hospitalist. HPI: The patient is a pleasant 79-year-old gentleman with a past medical history of hyperlipidemia who presents to the emergency department via walk-in for evaluation of cough, congestion, generalized bodyaches and headache over the past 24 hours. Patient reports he woke up yesterday morning feeling okay but progressively became worse throughout the day. His called emergency department to also inform that the patient had abdominal pain yesterday when he was moving furniture. Patient reports he does have fluctuating abdominal pain related to a suspected hernia that his primary care doctor knows about. He denies any nausea, vomiting, constipation or diarrhea. He denies any chest pain. He reports mild shortness of breath. He denies any pain with inspiration. ROS: See above HPI for pertinent positives & negatives. A total of 10 systems reviewed and were otherwise negative. VITALS:See Below PHYSICAL EXAMINATION: GENERAL: Awake, alert, fatigued-appearing, in no distress HENT: Normocephalic, atraumatic. Boggy nasal turbinates. Oropharynx with dry mucous membranes and otherwise unremarkable. EYES: Normal conjunctiva. Sclera non-icteric. EOMI. No nystamgus. PEARRL. NECK: Supple. No nuchal rigidity. FROM. No JVD. RESPIRATORY: Subtle wheeze otherwise clear to auscultation. CARDIAC: Regular rate, normal rhythm. Extremities warm and well perfused. Pulses equal. ABDOMEN: Soft, non-distended. No tenderness to palpation. No rebound or guarding. Soft, small umbilical hernia without ttp, edema, or discoloration. MUSCULOSKELETAL: Chest examination reveals no tenderness. The back is symmetrical on inspection without obvious abnormality. There is no CVA tenderness to palpation. No joint edema. LOWER EXTREMITIES: Calves are equal size bilaterally and non-tender. No edema. No discoloration. NEURO: Normal sensorium. No sensory or motor deficits noted. CNII-II grossly intact. 5/5 strength and SILT x 4 extremities. Intact finger to nose. SKIN: No rash or jaundice noted. Vaughn Rascon MD Past Med/Surg History Problem List (Updated 11/16/24 @ 15:36 by Vaughn Rascon MD) Generalized weakness (Acute) Thyroid nodule Left groin pain Abdominal pain S/P left inguinal hernia repair (12/30/23) p Left Open repair of recurrent Inguinal Hernia with Mesh(Left) - Frandy Nicole DO s Open Repair Umbilical Hernia(Not Applicable) - Frandy Nicole DO Umbilical hernia without mention of obstruction or gangrene Recurrent left inguinal hernia S/P total hip arthroplasty Arthritis of right hip Status post right knee replacement Positive blood culture Hypoxia (Acute) COVID-19 (Acute) Encounter for pre-operative examination Lumbar spondylosis Hyperlipidemia Medical History Umbilical hernia Left inguinal hernia History of COVID-19 (~09/2020) admitted to [facility] with COVID pneumonia, resolved Osteoarthritis GERD (gastroesophageal reflux disease) Surgical History H/O umbilical hernia repair (12/30/23) p Left Open repair of recurrent Inguinal Hernia with Mesh(Left) - Frandy Nicole DO s Open Repair Umbilical Hernia(Not Applicable) - Frandy Nicole DO History of hip surgery (~2021) right hip dislocation post RTHR, returned to surgery History of total right hip replacement (~2020) Hx of tonsillectomy History of repair of rotator cuff right Hx of hernia repair History of tooth extraction History of colonoscopy History of appendectomy History of total knee replacement (~2013) rt Family History Mother Heart disease Father Heart disease Social History Smoking Status: Never smoker Second Hand Exposure: No; Do You Dip or Chew Tobacco: No; Hx Alcohol Use: Yes Alcohol type: wine Hx Substance Use: No Preferred Language: French Communication Ability: Effective Auto Design Checker Required: No Beliefs That Will Affect Care: None marital status: Current Living Situation: Spouse current occupational status: retired How many Children do You have: 2 Feels Safe at Home: Yes during the past year weight has: remained stable Assistive Devices: Glasses Allergies Allergies Allergy/AdvReac Type Severity Reaction Status Date / Time No Known Allergies Allergy Verified 11/13/24 12:54 Home Meds Home Medications Medication Instructions Recorded Confirmed pravastatin 10 mg tablet 10 mg PO HS 09/02/18 11/16/24 meloxicam 15 mg tablet 15 mg PO DAILY PRN Pain (Scale 11/24/23 11/16/24 Score 1-3) acetaminophen 325 mg tablet 325 mg PO QID PRN Pain 11/16/24 11/16/24 (Tylenol) Results & Data (ED) Vital Signs Vital Signs - 24 hr 11/16/24 05:32 11/16/24 06:15 11/16/24 06:27 Temperature 36.9 C Temperature Source Temporal Artery Scan Pulse Rate 100 H Pulse Rate [Apical] 85 Pulse Rate from SpO2 Sensor Pulse Rhythm [Apical] Regular Pulse Strength [Apical] Normal Respiratory Rate 18 17 Respiratory Effort / Characteristics Non-Labored Spontaneous Non-Labored Spontaneous Respiratory Depth Normal Normal Respiratory Pattern Regular Blood Pressure 86/59 L Blood Pressure [Right Arm] 94/61 L 134/72 Blood Pressure Mean 68 Blood Pressure Mean [Right Arm] 72 92 Blood Pressure Position [Right Arm] Sitting Pulse Oximetry 95 90 Oxygen Delivery Method Room Air Room Air Oxygen Flow Rate Sepsis Recent Fever Within 48 Hours No Sepsis New/Unexplained Change in Mental Status No Sepsis Action Taken by Nursing No Action Required 11/16/24 06:41 11/16/24 06:43 11/16/24 07:00 Temperature Temperature Source Pulse Rate Pulse Rate [Apical] 84 Pulse Rate from SpO2 Sensor Pulse Rhythm [Apical] Pulse Strength [Apical] Respiratory Rate 17 Respiratory Effort / Characteristics Respiratory Depth Respiratory Pattern Blood Pressure Blood Pressure [Right Arm] 147/85 H Blood Pressure Mean Blood Pressure Mean [Right Arm] 105 Blood Pressure Position [Right Arm] Pulse Oximetry 89 L 96 98 Oxygen Delivery Method Room Air Nasal Cannula Nasal Cannula Oxygen Flow Rate 2 2 Sepsis Recent Fever Within 48 Hours Sepsis New/Unexplained Change in Mental Status Sepsis Action Taken by Nursing 11/16/24 07:39 11/16/24 07:45 11/16/24 08:18 Temperature Temperature Source Pulse Rate 82 80 86 Pulse Rate [Apical] Pulse Rate from SpO2 Sensor 81 87 Pulse Rhythm [Apical] Pulse Strength [Apical] Respiratory Rate 16 13 Respiratory Effort / Characteristics Respiratory Depth Respiratory Pattern Blood Pressure Blood Pressure [Right Arm] Blood Pressure Mean Blood Pressure Mean [Right Arm] Blood Pressure Position [Right Arm] Pulse Oximetry 99 100 Oxygen Delivery Method Nasal Cannula Nasal Cannula Oxygen Flow Rate 2 2 Sepsis Recent Fever Within 48 Hours Sepsis New/Unexplained Change in Mental Status Sepsis Action Taken by Nursing 11/16/24 08:48 11/16/24 08:54 11/16/24 09:00 Temperature Temperature Source Pulse Rate Pulse Rate [Apical] Pulse Rate from SpO2 Sensor 91 H 84 Pulse Rhythm [Apical] Pulse Strength [Apical] Respiratory Rate Respiratory Effort / Characteristics Respiratory Depth Respiratory Pattern Blood Pressure 139/87 Blood Pressure [Right Arm] Blood Pressure Mean 93 Blood Pressure Mean [Right Arm] Blood Pressure Position [Right Arm] Pulse Oximetry 85 L 98 Oxygen Delivery Method Room Air Nasal Cannula Oxygen Flow Rate 2 Sepsis Recent Fever Within 48 Hours Sepsis New/Unexplained Change in Mental Status Sepsis Action Taken by Nursing 11/16/24 09:03 11/16/24 09:30 11/16/24 09:51 Temperature Temperature Source Pulse Rate Pulse Rate [Apical] 80 Pulse Rate from SpO2 Sensor 80 80 Pulse Rhythm [Apical] Pulse Strength [Apical] Respiratory Rate 18 Respiratory Effort / Characteristics Respiratory Depth Respiratory Pattern Blood Pressure Blood Pressure [Right Arm] 151/80 H Blood Pressure Mean Blood Pressure Mean [Right Arm] 103 Blood Pressure Position [Right Arm] Pulse Oximetry 97 97 99 Oxygen Delivery Method Nasal Cannula Nasal Cannula Nasal Cannula Oxygen Flow Rate 2 2 2 Sepsis Recent Fever Within 48 Hours Sepsis New/Unexplained Change in Mental Status Sepsis Action Taken by Nursing 11/16/24 10:00 Temperature Temperature Source Pulse Rate Pulse Rate [Apical] Pulse Rate from SpO2 Sensor Pulse Rhythm [Apical] Pulse Strength [Apical] Respiratory Rate Respiratory Effort / Characteristics Respiratory Depth Respiratory Pattern Blood Pressure 143/84 H Blood Pressure [Right Arm] Blood Pressure Mean 90 Blood Pressure Mean [Right Arm] Blood Pressure Position [Right Arm] Pulse Oximetry Oxygen Delivery Method Oxygen Flow Rate Sepsis Recent Fever Within 48 Hours Sepsis New/Unexplained Change in Mental Status Sepsis Action Taken by Nursing Laboratory Data Attestation: I reviewed the patient's lab results. 11/16/24 06:24 11/16/24 06:24 Lab Results 11/16/24 11/16/24 11/16/24 Range/Units 05:30 06:24 08:00 WBC 6.98 (4.8-10.8) K/ul RBC 4.75 (4.70-6.10) M/uL Hgb 14.9 (14.0-18.0) g/dl Hct 44.1 (42.0-52.0) % MCV 92.8 (80.0-100.0) fL MCH 31.4 (25.0-34.0) pg MCHC 33.8 (32.0-36.0) g/dL RDW Std Deviation 41.7 (36.4-46.3) fL RDW Coeff of Kai 12.1 (11.5-14.5) % Plt Count 141 (130-400) K/uL MPV 10.1 (9.4-12.4) fL Immature Gran % (Auto) 0.6 % Neut % (Auto) 82.0 % Lymph % (Auto) 8.5 % [place] % (Auto) 8.7 % Eos % (Auto) 0.1 % Baso % (Auto) 0.1 % Neut # (Auto) 5.72 (1.40-6.50) K/uL Lymph # (Auto) 0.59 L (1.20-3.40) K/uL [place] # (Auto) 0.61 H (0.11-0.59) K/uL Eos # (Auto) 0.01 (0.00-0.50) K/uL Baso # (Auto) 0.01 (0.00-0.20) K/uL Immature Gran # (Auto) 0.04 (0.01-0.20) K/uL Sodium 139 (136-145) mmol/L Potassium 4.1 (3.5-5.1) mmol/L Chloride 104 (98-107) mmol/L Carbon Dioxide 29 (21-32) mmol/L Anion Gap 6 (3-11) BUN 10 (6-23) mg/dl Creatinine 1.03 (0.6-1.4) mg/dl Est Cr Clr Drug Dosing 69.6 ml/min eGFR 74.82 BUN/Creatinine Ratio 9.7 L (10-20) Glucose 139 H (70-99(Fasting)) mg/dl Calcium 9.0 (8.6-10.3) mg/dl Phosphorus 2.9 (2.5-4.9) mg/dl Magnesium 1.8 (1.7-2.4) mg/dl Total Bilirubin 0.8 (0.2-1.0) mg/dl AST 10 L (13-39) U/L ALT 13 (7-52) U/L Alkaline Phosphatase 44 (34-104) U/L Troponin I High Sens 17.1 (0-20) pg/ml C-Reactive Protein 1.54 H (0-0.5) mg/dl Total Protein 6.6 (6.0-8.3) gm/dl Albumin 4.3 (3.4-5.0) gm/dl Globulin 2.3 L (2.5-4.0) gm/dl Albumin/Globulin Ratio 1.9 (0.9-2) Lipase 18 (11-82) U/L Procalcitonin 0.08 (0-0.5) ng/ml TSH 1.678 (0.300-4.500) uIu/ml Urine Color Yellow Urine Appearance Clear (Clear) Urine pH 8.0 H (4.5-7.5) Ur Specific [place] 1.012 (1.000-1.030) Urine Protein Negative (Negative) Urine Glucose (UA) Negative (Negative) Urine Ketones Negative (Negative) Urine Blood Negative (Negative) Urine Nitrite Negative (Negative) Urine Bilirubin Negative (Negative) Urine Urobilinogen Negative (Negative) Ur Leukocyte Esterase Negative (Negative) SARS-CoV-2 (PCR) POSITIVE A (Negative) Influenza Type A (PCR) Negative (Neg) Influenza Type B (PCR) Negative (Neg) RSV (RT-PCR) Negative (Neg) Administered Medications Albuterol (Albuterol Hfa 8 Gm Inhaler) 2 puffs INH Q4R [facility] Stop: 12/16/24 13:02 Last Admin: 11/16/24 15:11 Dose: Not Given Documented By: Admin: 11/16/24 13:33 Dose: 2 puffs Documented By: COLE Enoxaparin Sodium (Enoxaparin Inj 40 Mg/0.4 Ml Syr) 40 mg SQ DAILY ZOILA Stop: 12/16/24 13:02 Last Admin: 11/16/24 13:34 Dose: 40 mg Documented By: COLE Sodium Chloride (Nss) 1,000 mls @ 100 mls/hr IV .Q10H ZOILA Stop: 11/16/24 21:19 Last Infusion: 11/16/24 14:30 Dose: 100 mls/hr Documented By: Admin: 11/16/24 10:42 Dose: 80 mls/hr Documented By: COLE Discontinued Medications Albuterol (Albuterol Hfa 8 Gm Inhaler) 2 puffs INH NOW ONE Stop: 11/16/24 08:17 Last Admin: 11/16/24 08:57 Dose: 2 puffs Documented By: COLE Dexamethasone Sodium Phosphate (DexamethasonePf 10 Mg/Ml Vial) 6 mg IV NOW ONE Stop: 11/16/24 08:17 Last Admin: 11/16/24 08:52 Dose: 6 mg Documented By: COLE Guaifenesin (Guaifenesin 600 Mg Tabcr) 600 mg PO NOW STA Stop: 11/16/24 08:16 Last Admin: 11/16/24 08:53 Dose: 600 mg Documented By: COLE Sodium Chloride (Nss) 500 mls @ 999 mls/hr IV .Q31M ONE Stop: 11/16/24 06:53 Last Infusion: 11/16/24 08:03 Dose: Infused Documented By: Admin: 11/16/24 07:32 Dose: 999 mls/hr Documented By: COLE Sodium Chloride (Nss) 1,000 mls @ 999 mls/hr IV .Q1H1M ONE Stop: 11/16/24 09:11 Last Infusion: 11/16/24 09:53 Dose: Infused Documented By: Admin: 11/16/24 08:52 Dose: 999 mls/hr Documented By: COLE Acetaminophen (Ofirmev) 1,000 mg in 100 mls @ 400 mls/hr IV NOW STA Stop: 11/16/24 08:29 Last Infusion: 11/16/24 09:09 Dose: Infused Documented By: Admin: 11/16/24 08:54 Dose: 400 mls/hr Documented By: COLE Remdesivir 200 mg/ Sodium (Chloride) 250 mls @ 125 mls/hr IV NOW ONE Stop: 11/16/24 12:14 Last Infusion: 11/16/24 12:43 Dose: Infused Documented By: Admin: 11/16/24 10:43 Dose: 125 mls/hr Documented By: COLE Ioversol (Optiray 320 125ml) 120 ml IV ONCE ONE Stop: 11/16/24 08:35 Last Admin: 11/16/24 08:35 Dose: 120 ml Documented By: KSENIA Sodium Chloride (Sodium Chloride 0.65% Na Soln 45 Ml (Hart)) 2 sprays NA NOW ONE Stop: 11/16/24 08:16 Last Admin: 11/16/24 08:55 Dose: 2 sprays Documented By: COLE Imaging Data Radiologist's Impression: Chest X-Ray 11/16/24 06:39 EXAM: XR chest 1V portable CLINICAL HISTORY: WEAKNESS. TECHNIQUE: X-ray image of the chest was obtained in frontal projection. COMPARISON: No prior studies are available for comparison. FINDINGS: Pulmonary Parenchyma: Prominent bilateral parahilar markings. No evidence of consolidation, collapse, or focal opacities. No pulmonary nodules were identified. No evidence of pleural effusion or pleural thickening. Heart and Mediastinum: Heart size and shape are normal. No mediastinal widening or masses. No hilar or mediastinal lymphadenopathy. Bony Thorax: Spondylotic changes in the thoracic spine. The bony thorax appears intact without fractures or deformities. Soft Tissues: Soft tissues overlying the chest wall are unremarkable. IMPRESSION: 1. Prominent bilateral parahilar markings possibly congestion. 2. No evidence of consolidation or focal opacities. Electronically signed by Cynthia Nielsen 11-16-2024 07:53 AM Abdomen/Pelvis CT 11/16/24 08:[address] WITH IV CONTRAST CT DOSE: 2946 HISTORY: abd pain TECHNIQUE: Multiaxial CT images of the abdomen and pelvis were performed following the IV administration of 120 cc of Optiray, A dose lowering technique was utilized adhering to the principles of ALARA. COMPARISON STUDY: None FINDINGS: There is mild atelectasis at the left lung base. There is a small hiatal hernia. There are diffuse coronary artery calcifications. Abdomen: Liver, gallbladder, spleen, pancreas, and adrenal glands are unremarkable. Kidneys show no hydronephrosis or calculi. There are scattered atherosclerotic calcifications. No abdominal aortic aneurysm. Pelvis: Prostate is enlarged. Urinary bladder is moderately distended. There is moderate retained stool. There is a small umbilical hernia measuring 2.5 cm containing a nonobstructed small bowel loop. Hernia neck measures 1.6 cm diameter. No evidence of incarceration seen. No bowel inflammation or obstruction. No free fluid, free air, or abscess. No enlarged adenopathy. Osseous structures: There is moderate lumbar degenerative disc disease. There is minimal scoliosis. Right hip prosthesis is present. No acute osseous findings. IMPRESSION: 1. Small umbilical hernia contains nonobstructed small bowel loop. No associated bowel obstruction seen. 2. No other acute findings seen. Otherwise as described. ACT 112: Negative or not required by law. The above report was generated using voice recognition software. It may contain grammatical, syntax or spelling errors. Electronically signed by: Aurelio Mooney M.D. 11/16/2024 8:59 AM Chest CTA 11/16/24 08:14 CT angio chest PE protocol CT DOSE: 2946.55 mGy.cm HISTORY: 79 years-old Male with covid, hypoxia, r/o PE. Acute cough with congestion and shortness of breath TECHNIQUE: Multiple CTA images of the chest were obtained after the intravenous administration of 120 ml Optiray. Coronal and sagittal MIPS were obtained from the axial data set and were submitted for review. All measurements were obtained according to NASCET criteria. A dose lowering technique was utilized adhering to the principles of ALARA. COMPARISON: CT abdomen and pelvis of same day, CT chest 10/11/2020 FINDINGS: No pulmonary emboli are identified. There is no thoracic aortic dissection. The heart is mildly enlarged with moderate coronary artery calcifications. Incidental note is made of a 1.4 cm left lobe thyroid nodule, unchanged. There is no pericardial effusion. No enlarged axillary, mediastinal or hilar lymph nodes are present. A small hiatal hernia is present. No pneumothorax or pleural effusion is noted. Linear bibasilar atelectasis/scarring. Resolution of the previously described groundglass density seen on the study from 2019, therefore these were infectious or inflammatory. Bony thorax is unremarkable. CT abdomen and pelvis dictated separately. IMPRESSION: 1. Unremarkable CTA of the chest. No pulmonary emboli identified. 2. Please refer to the same day CT abdomen and pelvis study for additional findings. ACT 112: Negative or not required by law. The above report was generated using voice recognition software. It may contain grammatical, syntax or spelling errors. Electronically signed by: Marquise Villagran M.D. 11/16/2024 9:[address] 11/16/24 08:15 CT head/brain wo con CLINICAL HISTORY: headache, covid. TECHNIQUE: Multiple axial CT images of the head were obtained without contrast. A dose lowering technique was utilized adhering to the principles of ALARA. COMPARISON: None FINDINGS: No intracranial hemorrhage seen. No mass effect, midline shift, or hydrocephalus. No skull fracture. Visualized paranasal sinuses and mastoid air cells are clear. IMPRESSION: No acute findings. ACT 112: Negative or not required by law. The above report was generated using voice recognition software. It may contain grammatical, syntax or spelling errors. Electronically signed by: Aurelio Mooney M.D. 11/16/2024 8:54 AM Discharge Plan Visit Data Chief Complaint: Flu Like Symptoms Stated Complaint: HEADACHE,CHILLS,ACHY,BODY ACHES ED Provider: Vaughn Rascon Discharge Problem: COVID-19, Hypoxia, Generalized weakness Discharge Instructions Interventions: ED Discharge Assessment Last Done: 11/16/24 13:04
[2024-11-16 07:02] LABS: Basophils # (auto) 0.01 K/uL (0.00-0.20); Basophils % (auto) 0.1 %; Eosinophils # (auto) 0.01 K/uL (0.00-0.50); Eosinophils % (auto) 0.1 %; Hematocrit (blood only) 44.1 % (42.0-52.0); Hemoglobin 14.9 g/dl (14.0-18.0); Immature Granulocytes # (auto) 0.04 K/uL (0.01-0.20); Immature Granulocytes % (auto) 0.6 %; Lymphocytes # (auto) 0.59 K/uL (1.20-3.40); Lymphocytes % (auto) 8.5 %; Mean Corpuscular Hemoglobin 31.4 pg (25.0-34.0); Mean Corpuscular Hgb Conc 33.8 g/dL (32.0-36.0); Mean Corpuscular Volume 92.8 fL (80.0-100.0); Mean Platelet Volume 10.1 fL (9.4-12.4); Monocytes # (auto) 0.61 K/uL (0.11-0.59); Monocytes % (auto) 8.7 %; Neutrophils # (auto) 5.72 K/uL (1.40-6.50); Platelet Count 141 K/uL (130-400); RDW Coefficient of Variation 12.1 % (11.5-14.5); RDW Standard Deviation 41.7 fL (36.4-46.3); Red Blood Count 4.75 M/uL (4.70-6.10); White Blood Count 6.98 K/ul (4.8-10.8)
[2024-11-16 07:19] LABS: Albumin Globulin Ratio 1.9 (0.9-2); Albumin Level 4.3 gm/dl (3.4-5.0); BUN Creatinine Ratio 9.7 (10-20); Bilirubin,Total 0.8 mg/dl (0.2-1.0); Creatinine Clr Calc Pharmacy 69.6 ml/min; Globulin 2.3 gm/dl (2.5-4.0); Magnesium 1.8 mg/dl (1.7-2.4); Potassium 4.1 mmol/L (3.5-5.1); Total Protein 6.6 gm/dl (6.0-8.3)
[2024-11-16] MEDS: SODIUM CHLORIDE 0.9% 500 ML IV ONE (07:32)
[2024-11-16 07:33] LABS: Thyroid Stimulating Hormone 1.678 uIu/ml (0.300-4.500)
--- NOTE | 2024-11-16 07:53 | XRay Report ---
EXAM: XR chest 1V portable CLINICAL HISTORY: WEAKNESS. TECHNIQUE: X-ray image of the chest was obtained in frontal projection. COMPARISON: No prior studies are available for comparison. FINDINGS: Pulmonary Parenchyma: Prominent bilateral parahilar markings. No evidence of consolidation, collapse, or focal opacities. No pulmonary nodules were identified. No evidence of pleural effusion or pleural thickening. Heart and Mediastinum: Heart size and shape are normal. No mediastinal widening or masses. No hilar or mediastinal lymphadenopathy. Bony Thorax: Spondylotic changes in the thoracic spine. The bony thorax appears intact without fractures or deformities. Soft Tissues: Soft tissues overlying the chest wall are unremarkable. IMPRESSION: 1. Prominent bilateral parahilar markings possibly congestion. 2. No evidence of consolidation or focal opacities. Electronically signed by Cynthia Nielsen 11-16-2024 07:53 AM
[2024-11-16 08:20] LABS: Appearance Urine Clear (Clear); Bilirubin Urine Negative (Negative); Blood Urine Negative (Negative); Color Urine Yellow; Glucose Urine UA Negative (Negative); Ketones Urine Negative (Negative); Leukocyte Esterase Urine Negative (Negative); Nitrite Urine Negative (Negative); Protein Urine Negative (Negative); Specific Gravity Urine 1.012 (1.000-1.030); Urobilinogen Urine Negative (Negative)
[2024-11-16] MEDS: OPTIRAY 320 125ml IV ONE (08:35)
[2024-11-16] MEDS: SODIUM CHLORIDE 0.9% 1,000 ML IV ONE (08:52)
[2024-11-16] MEDS: dexAMETHasone**PF** 10 MG/ML VIAL IV ONE (08:52)
[2024-11-16] MEDS: guaiFENesin 600 MG TABCR PO STA (08:53)
[2024-11-16] MEDS: ACETAMINOPHEN 1,000 MG/100 ML VIAL IV STA (08:54)
[2024-11-16] MEDS: SODIUM CHLORIDE 0.65% NA SOLN 45 ML (OCEAN) ONE (08:55)
--- NOTE | 2024-11-16 08:55 | CT Scan Report ---
CT head/brain wo con CLINICAL HISTORY: headache, covid. TECHNIQUE: Multiple axial CT images of the head were obtained without contrast. A dose lowering tech nique was utilized adhering to the principles of ALARA. COMPARISON: None FINDINGS: No intracranial hemorrhage seen. No mass effect, midline shift, or hydrocephalus. No skull fracture. Visualized paranasal sinuses and mastoid air cells are clear. IMPRESSION: No acute findings. ACT 112: Negative or not required by law. The above report was generated using voice recognition software. It may contain grammatical, syntax o r spelling errors. Electronically signed by: Aurelio Mooney M.D. 11/16/2024 8:54 AM
[2024-11-16] MEDS: ALBUTEROL HFA 8 GM INHALER INH ONE (08:57)
--- NOTE | 2024-11-16 09:01 | CT Scan Report ---
ABDOMEN AND PELVIS CT WITH IV CONTRAST CT DOSE: 2946 HISTORY: abd pain TECHNIQUE: Multiaxial CT images of the abdomen and pelvis were performed following the IV administrat ion of 120 cc of Optiray, A dose lowering technique was utilized adhering to the principles of ALARA . COMPARISON STUDY: None FINDINGS: There is mild atelectasis at the left lung base. There is a small hiatal hernia. There are diffuse coronary artery calcifications. Abdomen: Liver, gallbladder, spleen, pancreas, and adrenal glands are unremarkable. Kidneys show no h ydronephrosis or calculi. There are scattered atherosclerotic calcifications. No abdominal aortic ane urysm. Pelvis: Prostate is enlarged. Urinary bladder is moderately distended. There is moderate retained sto ol. There is a small umbilical hernia measuring 2.5 cm containing a nonobstructed small bowel loop. H ernia neck measures 1.6 cm diameter. No evidence of incarceration seen. No bowel inflammation or obst ruction. No free fluid, free air, or abscess. No enlarged adenopathy. Osseous structures: There is moderate lumbar degenerative disc disease. There is minimal scoliosis. R ight hip prosthesis is present. No acute osseous findings. IMPRESSION: 1. Small umbilical hernia contains nonobstructed small bowel loop. No associated bowel obstruction se en. 2. No other acute findings seen. Otherwise as described. ACT 112: Negative or not required by law. The above report was generated using voice recognition software. It may contain grammatical, syntax o r spelling errors. Electronically signed by: Aurelio Mooney M.D. 11/16/2024 8:59 AM
--- NOTE | 2024-11-16 09:06 | CT Scan Report ---
CT angio chest PE protocol CT DOSE: 2946.55 mGy.cm HISTORY: 79 years-old Male with covid, hypoxia, r/o PE. Acute cough with congestion and shortness o f breath TECHNIQUE: Multiple CTA images of the chest were obtained after the intravenous administration of 120 ml Optiray. Coronal and sagittal MIPS were obtained from the axial data set and were submitted for review. All measurements were obtained according to NASCET criteria. A dose lowering technique was u tilized adhering to the principles of ALARA. COMPARISON: CT abdomen and pelvis of same day, CT chest 10/11/2020 FINDINGS: No pulmonary emboli are identified. There is no thoracic aortic dissection. The heart is mildly enlar ged with moderate coronary artery calcifications. Incidental note is made of a 1.4 cm left lobe thyro id nodule, unchanged. There is no pericardial effusion. No enlarged axillary, mediastinal or hilar ly mph nodes are present. A small hiatal hernia is present. No pneumothorax or pleural effusion is noted . Linear bibasilar atelectasis/scarring. Resolution of the previously described groundglass density s een on the study from 2019, therefore these were infectious or inflammatory. Bony thorax is unremarka ble. CT abdomen and pelvis dictated separately. IMPRESSION: 1. Unremarkable CTA of the chest. No pulmonary emboli identified. 2. Please refer to the same day CT abdomen and pelvis study for additional findings. ACT 112: Negative or not required by law. The above report was generated using voice recognition software. It may contain grammatical, syntax o r spelling errors. Electronically signed by: Marquise Villagran M.D. 11/16/2024 9:05 AM
[2024-11-16 09:29] LABS: Phosphorus 2.9 mg/dl (2.5-4.9)
--- NOTE | 2024-11-16 09:32 | History & Physical Report ---
Date of Service November 16, 2024 Assessment & Plan (1) Hypoxia: (2) COVID-19: (3) Thyroid nodule: (4) Hyperlipidemia: Plan Patient is a 79-year-old male with a past medical history of hyperlipidemia. He is being admitted due to hypoxia secondary to COVID. #COVID/hypoxia COVID 19 diagnosed on admission Symptomatic with cough, congestion, headache, fatigue x 24 hrs no leukopenia or leukocytosis CXR essentially negative, possible congestion; however CTA negative CT head negative, CTAP negative procal negative and CRP elevated 1.54 85% RA -> 2L NC incentive spirometry Q1H oxygen as needed; although attempt to wean O2 as tolerated Albuterol HFA Q4H; avoid DuoNebs with COVID as can aerosolize infection supportive care - continue Mucinex, Tylenol prn, promote oral hydration - will order 1 bag NSS gentle resuscitation on admission dexamethasone 6 mg daily remdesivir 200 mg IV on admission, continue with 100 mg daily x 5 days #thyroid nodule chest CTA showed 1.4 cm left thyroid nodule, unchanged Follow-up outpatient with PCP TSH WNL #HLD continue statin VTE ppx: Lovenox 40mg Q24H Diet: regular Dispo: med/tele Admission and Anticipated Discharge Date Admission Date: 11/16/24 History of Present Illness Chief Complaint: flu like sx Primary Care Provider: Jose Limon DO Patient is a 79-year-old male with a past medical history of hyperlipidemia, umbilical hernia and inguinal hernia. He is being admitted due to hypoxia secondary to COVID. Patient seen at bedside. He stated he developed cough, congestion, headache, fatigue, body aches approximately 24 hours ago. This mucus production has been clear, denies green/yellow mucus. He denies any sick contacts. He denies past history of COPD or asthma, does not use oxygen at baseline. He also stated he has had decreased oral intake and has felt slightly nauseous. Patient denies fever, sputum production, dyspnea, abdominal pain, vomiting, diarrhea. Was hospitalized with COVID in 2019, treated with dexamethasone and recovered well. He does not use nicotine products or drink alcohol. He denies past history of DM or previous VTE. He wishes to be DNR/DNI at this time. Allergies Allergy/AdvReac Type Severity Reaction Status Date / Time No Known Allergies Allergy Verified 11/13/24 12:54 Home Medications Medication Instructions Recorded Confirmed Type pravastatin 10 mg tablet 10 mg PO HS 09/02/18 11/16/24 History meloxicam 15 mg tablet 15 mg PO DAILY PRN Pain (Scale 11/24/23 11/16/24 History Score 1-3) acetaminophen 325 mg tablet 325 mg PO QID PRN Pain 11/16/24 11/16/24 History (Tylenol) Past Med/Surg History Problem List (Updated 11/16/24 @ 15:36 by Vaughn Rascon MD) Generalized weakness (Acute) Thyroid nodule Left groin pain Abdominal pain S/P left inguinal hernia repair (12/30/23) p Left Open repair of recurrent Inguinal Hernia with Mesh(Left) - Frandy Nicole DO s Open Repair Umbilical Hernia(Not Applicable) - Frandy Nicole DO Umbilical hernia without mention of obstruction or gangrene Recurrent left inguinal hernia S/P total hip arthroplasty Arthritis of right hip Status post right knee replacement Positive blood culture Hypoxia (Acute) COVID-19 (Acute) Encounter for pre-operative examination Lumbar spondylosis Hyperlipidemia Medical History Umbilical hernia Left inguinal hernia History of COVID-19 (~09/2020) admitted to [facility] with COVID pneumonia, resolved Osteoarthritis GERD (gastroesophageal reflux disease) Surgical History H/O umbilical hernia repair (12/30/23) p Left Open repair of recurrent Inguinal Hernia with Mesh(Left) - Frandy Nicole DO s Open Repair Umbilical Hernia(Not Applicable) - Frandy Nicole DO History of hip surgery (~2021) right hip dislocation post RTHR, returned to surgery History of total right hip replacement (~2020) Hx of tonsillectomy History of repair of rotator cuff right Hx of hernia repair History of tooth extraction History of colonoscopy History of appendectomy History of total knee replacement (~2013) rt Family History Mother Heart disease Father Heart disease Social History Smoking Status: Never smoker Second Hand Exposure: No; Do You Dip or Chew Tobacco: No; Hx Alcohol Use: Yes Alcohol type: wine Hx Substance Use: No Preferred Language: Austrian Communication Ability: Effective Student Assistant Required: No Beliefs That Will Affect Care: None marital status: Current Living Situation: Spouse Current Living Situation Comment: Home with spouse current occupational status: retired How many Children do You have: 2 Other Information That Helps Us Care for You: No Feels Safe at Home: Yes Safety Concerns: Feels Safe At This Time during the past year weight has: remained stable Assistive Devices: Glasses Review of Systems Review of Systems: see HPI Physical Exam Physical Exam: The patient is awake, alert and oriented 3, well developed and well nourished, normocephalic and atraumatic, in no acute distress. Non-toxic appearing. HEENT- EOMI, mucous membranes dry. Hearing grossly intact. Heart-normal S1 and S2. No murmurs, rubs or gallops. Lungs-clear bilaterally, no respiratory distress, no accessory muscle use. Abdomen-normal bowel sounds and soft. No ascites noted. Non-tender. Extremities- no clubbing, cyanosis, or edema. Rheumatologic-normal range of motion. Psychiatric-normal affect. Results & Data Results & Data Vital Signs (Past 12 Hours) Vital Signs Temp Pulse Pulse Resp BP BP Pulse Ox 11/16/24 09:03 97 11/16/24 09:00 139/87 11/16/24 08:54 98 11/16/24 08:48 85 L 11/16/24 08:18 86 13 100 11/16/24 07:45 80 16 99 11/16/24 07:39 82 11/16/24 07:00 84 17 147/85 H 98 11/16/24 06:43 96 11/16/24 06:41 89 L 11/16/24 06:27 85 17 134/72 90 11/16/24 06:15 94/61 L 11/16/24 05:32 36.9 C 100 H 18 86/59 L 95 O2 Del Method O2 Flow Rate 11/16/24 09:03 Nasal Cannula 2 11/16/24 09:00 11/16/24 08:54 Nasal Cannula 2 11/16/24 08:48 Room Air 11/16/24 08:18 Nasal Cannula 2 11/16/24 07:45 Nasal Cannula 2 11/16/24 07:39 11/16/24 07:00 Nasal Cannula 2 11/16/24 06:43 Nasal Cannula 2 11/16/24 06:41 Room Air 11/16/24 06:27 Room Air 11/16/24 06:15 11/16/24 05:32 Room Air Laboratory Results Reviewed CBC, CMP, troponin, TSH, UA, COVID/flu/RSV Diagnostic Findings reviewed head CT, chest CTA, AP CT, CXR Medications Administered ED: 1.5L NSS, Mucinex, Decadron 6 Mg, albuterol HFA ECG Additional Comments: ordered Code Status & VTE Plan VTE Prophylaxis Plan VTE Prophylaxis will be ordered: Yes Supervising Physician Co-Signing Physician Notes I personally saw and examined the patient. I independently reviewed the labs, EKG, imaging, problem list, medication list, past medical history and family history. I verified all thompson points and agree with Radha Higginbotham PA-C with the following exceptions and/or additions: 79 year old male presents to the ER with upper respiratory symptoms for 1 day. SARS-COV-2 positive in the ER. O/E HS RRR, no murmurs, Chest CTAB, Abdo SNT A/P COVID-19 - dexamethasone and remdesivir due to hypoxia. albuterol not effective therefore will just make PRN. He request saline nasal spray due to nasal congestion. Otherwise as above PG Care Time/CCT Total # of Minutes Spent Total Time Spent with Patient: Total time spent is greater than 50% in coordination of care (as documented) at patient's floor/unit and/or counseling patient: Coding Level of Care Code 59435 INT INP/OBS CARE 3/75MIN Diagnoses Hypoxia R09.02 COVID-19 U07.1 Thyroid nodule E04.1 Hyperlipidemia E78.5
[2024-11-16 09:36] LABS: Troponin I High Sensitivity 17.1 pg/ml (0-20)
[2024-11-16] MEDS: SODIUM CHLORIDE 0.9% 1,000 ML IV SCH (10:42)
[2024-11-16] MEDS: REMDESIVIR 200 MG in SODIUM CHLORIDE 0.9% 210 ML IV ONE (10:43)
[2024-11-16 11:41] LABS: C Reactive Protein 1.54 mg/dl (0-0.5)
[2024-11-16] MEDS ORDERED: ONDANSETRON INJ 2 MG/ML 2 ML VIAL IV PRN (13:03)
[2024-11-16] MEDS: ALBUTEROL HFA 8 GM INHALER INH SCH (13:33)
[2024-11-16] MEDS: ENOXAPARIN INJ 40 MG/0.4 ML SYR SQ SCH (13:34)
[2024-11-16] MEDS: guaiFENesin 600 MG TABCR PO SCH (21:11)
[2024-11-16] MEDS: PRAVASTATIN SOD 10 MG TAB PO SCH (21:11)
[2024-11-16] MEDS: ACETAMINOPHEN 325 MG TAB PO PRN (22:06)
[2024-11-16] MEDS ORDERED: ALBUTEROL HFA 8 GM INHALER INH PRN (22:27)
[2024-11-16 22:40] VITALS: O2SAT 94
[2024-11-16] MEDS: MELATONIN 3 MG TAB PO PRN (23:30)
[2024-11-16] MEDS: SODIUM CHLORIDE 0.65% NA SOLN 45 ML (OCEAN) SCH (23:30)
[2024-11-17 03:35] VITALS: TEMP 98.1
[2024-11-17 07:57] VITALS: RESP 16
[2024-11-17] MEDS: dexAMETHasone 6 MG in SYRINGE 0 ML IV SCH (08:11)
[2024-11-17 11:11] LABS: Basophils # (auto) 0.01 K/uL (0.00-0.20); Basophils % (auto) 0.2 %; Hematocrit (blood only) 39.6 % (42.0-52.0); Hemoglobin 13.5 g/dl (14.0-18.0); Immature Granulocytes # (auto) 0.03 K/uL (0.01-0.20); Immature Granulocytes % (auto) 0.6 %; Lymphocytes # (auto) 0.49 K/uL (1.20-3.40); Lymphocytes % (auto) 9.2 %; Mean Corpuscular Hemoglobin 31.4 pg (25.0-34.0); Mean Corpuscular Hgb Conc 34.1 g/dL (32.0-36.0); Mean Corpuscular Volume 92.1 fL (80.0-100.0); Mean Platelet Volume 9.8 fL (9.4-12.4); Monocytes # (auto) 0.62 K/uL (0.11-0.59); Monocytes % (auto) 11.7 %; Neutrophils # (auto) 4.17 K/uL (1.40-6.50); Neutrophils % (auto) 78.3 %; Platelet Count 122 K/uL (130-400); RDW Coefficient of Variation 12.4 % (11.5-14.5); RDW Standard Deviation 41.9 fL (36.4-46.3); White Blood Count 5.32 K/ul (4.8-10.8)
[2024-11-17 11:27] LABS: Albumin Globulin Ratio 1.7 (0.9-2); Albumin Level 3.8 gm/dl (3.4-5.0); Bilirubin,Total 0.6 mg/dl (0.2-1.0); Calcium 8.8 mg/dl (8.6-10.3); Creatinine Clr Calc Pharmacy 93.4 ml/min; Globulin 2.3 gm/dl (2.5-4.0); Potassium 3.9 mmol/L (3.5-5.1); Total Protein 6.1 gm/dl (6.0-8.3)
[2024-11-17] MEDS: REMDESIVIR 100 MG in SODIUM CHLORIDE 0.9% 230 ML IV SCH (11:33)
[2024-11-17 12:35] VITALS: BP 170/94
--- NOTE | 2024-11-17 14:16 | Discharge Summary ---
Discharge Summary Date of Service November 17, 2024 Principal Dx & Hospital Course #1 = Principal Diagnosis (1) Hypoxia: (2) COVID-19: (3) Thyroid nodule: (4) Hyperlipidemia: Plan Patient is a 79-year-old male with a past medical history of hyperlipidemia. He is being admitted due to hypoxia secondary to COVID. #COVID/hypoxia COVID 19 diagnosed on admission no leukopenia or leukocytosis CXR essentially negative, possible congestion; however CTA negative CT head negative, CTAP negative procal negative and CRP elevated 1.54 Patient weaned to room air. discharged on Dexamethasone 6mg PO daily for additional 5 days + albuterol inhaler to use prn q 4h. Recommended to continue Mucinex BID to aide with cough/congestion. #thyroid nodule chest CTA showed 1.4 cm left thyroid nodule, unchanged Follow-up outpatient with PCP TSH WNL #HLD continue statin Patient was hypertensive during hospital stay. appears patient is not on anything outpatient for his BP management - defer to PCP upon discharge whether they deem it necessary for anti-hypertensives. Encouraged to monitor at home and report readings to PCP. Admission HPI Per Admitting Provider Patient is a 79-year-old male with a past medical history of hyperlipidemia, umbilical hernia and inguinal hernia. He is being admitted due to hypoxia secondary to COVID. Patient seen at bedside. He stated he developed cough, congestion, headache, fatigue, body aches approximately 24 hours ago. This mucus production has been clear, denies green/yellow mucus. He denies any sick contacts. He denies past history of COPD or asthma, does not use oxygen at baseline. He also stated he has had decreased oral intake and has felt slightly nauseous. Patient denies fever, sputum production, dyspnea, abdominal pain, vomiting, diarrhea. Was hospitalized with COVID in 2019, treated with dexamethasone and recovered well. He does not use nicotine products or drink alcohol. He denies past history of DM or previous VTE. He wishes to be DNR/DNI at this time. Discharge Exam Constitutional WD/WN, vitals as above Eyes PERRL, conjunctivae normal, anicteric sclerae Respiratory normal respiratory effort, lungs clear to auscultation Cardiovascular RRR, no murmur, no edema Psychiatric A+Ox3, euthymic affect Discharge Plan Discharge Items Patient Disposition: Home - Self-Care Reason For Visit: COVID, HYPOXIA Discharge Diagnosis: COVID Activity: Resume your previous activity Non-emergency contact: Primary Care Provider Call non-emergency contact if: you have any medication questions, your symptoms worsen and you have a fever Follow-up/Referrals: Jose Limon, [Primary Care Provider] - Diet: Regular Addtl Attending Provider Instructions: Mr. Lang, You were recently hospitalized for flu-like symptoms and were found to be positive for COVID. You were treated with supportive care. Please see recommendations below regarding your discharge. 1. Please take Dexamethasone 6mg daily for 5 days. Your first dose at home will be on 11/18 in the morning. 2. Please use Mucinex twice daily for cough and congestion. 3. An albuterol inhaler has been sent to your pharmacy. Please use this if you feel short of breath as needed every 4 hours. 4. Please use Tylenol for pain or fever. 5. Your blood pressure has been elevated during your hospital stay. Please follow up with your PCP regarding this. Please monitor your BP at home and report your readings at your office visit. If you develop any worsening shortness of breath, fever, chills, chest pain please report back to the ER for further care. Sincerely, Fern Stoner PA-C Pending Studies at Discharge: No Stand-Alone Forms: [employer], Smoking Cessation Medications and DC Order Prescriptions: New dexamethasone 6 mg tablet 6 mg PO DAILY Qty: 5 0RF albuterol sulfate [Ventolin HFA] 90 mcg/actuation HFA aerosol inhaler 2 inh inhalation Q4H PRN (Reason: shortness of breath or wheezing) Qty: 6.7 0RF Continued meloxicam 15 mg tablet 15 mg PO DAILY PRN (Reason: Pain (Scale Score 1-3)) pravastatin 10 mg Tablet 10 mg PO HS acetaminophen [Tylenol] 325 mg Tablet 325 mg PO QID PRN (Reason: Pain) Discharge Orders: Discharge Order (Routine); Ordered 11/17/24 Ordered By: Fern Stoner Admission Data Admit Date/Time: 11/16/24 10:06 Attending Provider: Catalino Walker Admit Provider: Fausto Quintana Primary Care Provider: Jose Limon Other Providers: Catalino Walker Hospital Stay Data Consultations 11/16/24 09:23 ED Decision to Admit Stat Diagnostic Imagining Performed 11/16/24 08:14 CT abd pelvis IV con only Stat CT angio chest PE protocol Stat 11/16/24 08:15 CT head/brain wo con Stat Pending Results Patient Have Any Pending Studies at Discharge: No Discharge Instructions Given to Patient (Per Discharging Provider) Mr. Lang, Mike were recently hospitalized for flu-like symptoms and were found to be positive for COVID. You were treated with supportive care. Please see recommendations below regarding your discharge. 1. Please take Dexamethasone 6mg daily for 5 days. Your first dose at home will be on 11/18 in the morning. 2. Please use Mucinex twice daily for cough and congestion. 3. An albuterol inhaler has been sent to your pharmacy. Please use this if you feel short of breath as needed every 4 hours. 4. Please use Tylenol for pain or fever. 5. Your blood pressure has been elevated during your hospital stay. Please follow up with your PCP regarding this. Please monitor your BP at home and report your readings at your office visit. If you develop any worsening shortness of breath, fever, chills, chest pain please report back to the ER for further care. Sincerely, Fern Stoner PA-C Total Time Total Time Spent Total Time Spent (In Minutes): 40 Total Time Includes: Examination of the Patient, Discharge Planning, Medication Reconciliation and Communication With Other Providers Coding Level of Care Code 12299 INP/OBS DISCH >30 MIN Diagnoses Hypoxia R09.02 COVID-19 U07.1 Thyroid nodule E04.1 Hyperlipidemia E78.5
[2024-11-17 14:35] VITALS: PULSE 74
== END 2024-11-17 15:00 | disposition home or self-care (01) | DRG 179 ==
LOC: ED 05:24 → EDINP 10:06 → SUATTDRO 10:06 → 2W 13:04

== ENCOUNTER 2025-10-04 05:27 | Inpatient (IN) ==
--- NOTE | 2025-08-24 10:22 | PAT Medication Instructions ---
Medication Instructions Date of Service August 24, 2025 Home Medications pravastatin 10 mg tablet 10 mg PO HS meloxicam 15 mg tablet 15 mg PO DAILY PRN Pain (Scale Score 1-3) acetaminophen 325 mg tablet (Tylenol) 650 mg PO QID PRN Pain dimenhydrinate 25 mg chewable tablet (Dramamine) 50 mg PO HS PRN Vertigo ibuprofen 200 mg capsule 400 mg PO Q6H PRN Pain ASK your surgeon for instructions meloxicam 15 mg tablet 15 mg PO DAILY PRN Pain (Scale Score 1-3) ibuprofen 200 mg capsule 400 mg PO Q6H PRN Pain Take morning of surgery With a small sip of water, OTHERWISE NOTHING TO EAT OR DRINK AFTER MIDNIGHT: acetaminophen 325 mg tablet (Tylenol) 650 mg PO QID PRN Pain (if needed) Take evening before surgery pravastatin 10 mg tablet 10 mg PO HS acetaminophen 325 mg tablet (Tylenol) 650 mg PO QID PRN Pain (if needed) dimenhydrinate 25 mg chewable tablet (Dramamine) 50 mg PO HS PRN Vertigo (if needed) Other Notes If you have any questions please call us at [phone] or [phone] or [phone] or [phone]
--- NOTE | 2025-09-04 11:14 | Anesthesiology Consultation ---
Date of Service September 04, 2025 Assessment & Plan (1) Encounter for pre-operative examination: Chart Review Chart Review: Acceptable Risk for Surgery (pending surgeon ordered PCP clearance ) and Patient seen in Pre Admission Testing - Awaiting surgeon ordered PCP clearance 09/12/25 (Dr. Limon) Pt currently scheduled as 23 hours observation. If surgeon decides to change patient to Same Day Joint, patient would be acceptable risk for MARTIN, pending patient is motivated, has good support and surgeon's office completes [facility] Program preop requirements. Per PAT appt on 09/04/25, no recent illness/disease exposures, illness related symptoms, or recent illness/disease positive tests. Will leave to surgeon's discretion if preop Covid testing needed Teaching & Discussion Pre-Anesthesia Teaching/Discussion Notes: Instructed NPO after midnight before surgery,except medications with 15 cc of water. Medication instructions provided according to the PAT guidelines. History Surgery Operation Date: 10/04/25 10:40 Proposed Procedures p Left Total Hip Arthroplasty - Matthew Marrufo MD Height/Weight Height: 6 ft Weight: 92.8 kg Allergies Allergy/AdvReac Type Severity Reaction Status Date / Time No Known Allergies Allergy Verified 08/23/25 14:38 Medications Home Medications Medication Instructions Recorded Confirmed Last Taken pravastatin 10 mg tablet 10 mg PO HS 09/02/18 08/23/25 01/11/25 meloxicam 15 mg tablet 15 mg PO DAILY PRN Pain (Scale 11/24/23 08/23/25 Unknown Score 1-3) acetaminophen 325 mg tablet 650 mg PO QID PRN Pain 11/16/24 08/23/25 01/03/25 17:00 (Tylenol) dimenhydrinate 25 mg chewable 50 mg PO HS PRN Vertigo 12/22/24 08/23/25 Unknown tablet (Dramamine) ibuprofen 200 mg capsule 400 mg PO Q6H PRN Pain 01/17/25 08/23/25 Unknown Past Medical History Medical History GERD (gastroesophageal reflux disease) well controlled and stable History of COVID-19 (~10/2024) Nov 16, 2024 > tested at [facility] > symptoms resolved Hyperlipidemia Osteoarthritis Thyroid nodule Incidentally found on imaging Vertigo Intermittent- Dramamine PRN No current issues at PAT appt 09/04/25 Exercise / Class Metabolic Activity II 4-5 Yardwork/Stairs/Walk up hill (one flight of stairs - no chest pain or SOB ) Past Family History Family History Mother Heart disease Father Heart disease Other No family history of adverse response to anesthesia Past Surgical History Surgical History H/O left inguinal hernia repair (12/30/23) Left Open repair of recurrent Inguinal Hernia with Mesh(Left) - Frandy Nicole H/O total hip arthroplasty (04/2021) Right H/O umbilical hernia repair (12/2024) Open Repair Umbilical Hernia(Not Applicable) - Frandy Nicole, DO History of appendectomy History of colonoscopy History of hip surgery (~2021) right hip dislocation post RTHR, returned to surgery History of repair of rotator cuff right History of tooth extraction History of total knee replacement (~2013) right History of total right hip replacement (~2020) Hx of hernia repair inguinal (remote history) Hx of tonsillectomy S/P epidural steroid injection Past Anesthesia History No Hx of Anesthesia Complications and No Family Hx of Anesthesia Complications History of PONV No Hx of PONV and No Hx of Motion Sickness Social History Smoking Status: Never smoker Do You Dip or Chew Tobacco: No Hx Alcohol Use: Yes Alcohol type: wine alcohol intake frequency: a few times a week Hx Substance Use: No substance use type: does not use Review of Systems Patient denies chest pain, shortness of breath, dyspnea on exertion, cough, wheezing, palpitations. No hx of seizures, stroke, HI, apnea/snoring. No hx of blood clots or blood transfusions Physical Exam Vital Signs VITALS BP 161/84 P 60 TEMP 97.5 SP02 97% RESP 16 Constitutional no acute distress ENMT Mouth: no TMJ clicking Thyromental Distance: > or= 3.5 Finger Breadths (3.5) Mallampati Class: II Missing molars Permanent implants to side teeth and molars Crowns to molars Neck + limited neck extension Respiratory normal respiratory effort; no respiratory distress Auscultation: lungs clear to auscultation bilaterally; no wheezes Cardiovascular Rate/Rhythm: regular rate and regular rhythm Heart Sounds: no murmur Vessels: no carotid bruit Musculoskeletal Spine: + pain with cervical ROM (also vertigo with neck extension ) Extremities: extremities normal to inspection Psychiatric Orientation: alert Lab Results Anesthesia Preop Results Results Anesthesia Widget: WBC 3.77 K/ul (4.8-10.8) L 09/04/25 Hgb 13.7 g/dL (14.0-18.0) L 09/04/25 Hct 40.8 % (42.0-52.0) L 09/04/25 Plt 162 K/uL (130-400) 09/04/25 Na 141 mmol/L (136-145) 09/04/25 K 4.0 mmol/L (3.5-5.1) 09/04/25 Cl 105 mmol/L (98-107) 09/04/25 CO2 31 mmol/L (21-32) 09/04/25 BUN 16 mg/dl (6-23) 09/04/25 Creat 0.80 mg/dl (0.6-1.4) 09/04/25 Glucose Level 100 mg/dl (70-99(Fasting)) H 09/04/25 PT 11.1 Seconds (9.0-12.0) 09/04/25 PTT 26 Seconds (21-31) 09/04/25 INR 1.1 (0.9-1.1) 09/04/25 Urine Color Yellow 09/04/25 Urine Appearance Clear (Clear) 09/04/25 Urine pH 6.0 (4.5-7.5) 09/04/25 Urine Specific [place] 1.021 (1.000-1.030) 09/04/25 Urine Protein Negative (Negative) 09/04/25 Urine Glucose (UA) Negative (Negative) 09/04/25 Urine Ketones Negative (Negative) 09/04/25 Urine Blood Negative (Negative) 09/04/25 Urine Nitrite Negative (Negative) 09/04/25 Urine Bilirubin Negative (Negative) 09/04/25 Urine Urobilinogen Negative (Negative) 09/04/25 Urine Leukocyte Esterase Negative (Negative) 09/04/25 Blood Type O Positive 09/04/25 Antibody Screen NEGATIVE 09/04/25 Testing Laboratory Results - Spoke with surgeon's office 09/04/25- UA with culture if indicated is only needed Electrocardiogram Date: 01/12/25 SR at 67bpm Minimal voltage criteria for LVH, may be normal variant (R in aVL) Chest X-Ray Date: 01/12/25 Findings: + NAD
--- NOTE | 2025-09-18 09:32 | History & Physical Report ---
Date of Service September 18, 2025 Assessment & Plan (1) Osteoarthritis of left hip: Plan: PRE-OP Diagnosis: Left hip osteoarthritis Planned Procedure: Left total hip arthroplasty Plan: Patient is scheduled to undergo this procedure at the [facility] with Dr. Marrufo on September. Risks and complications of the procedure such as: Infection, bleeding, pain, scarring, nerve blood vessel damage, weakness, wound problems, stiffness, incomplete relief of symptoms, hardware failure, hardware loosening, wear, fracture, tendon or ligament injury, dislocation, leg length inequality, blood clots, embolism, heart attack, stroke and were explained to the patient at his visit today. Informed consent to perform the procedure was obtained. Patient had his PAT appointment on September 04 and while there he obtained a CBC with differential, complete metabolic panel, PT/INR, blood type and screen, urinalysis, urine culture and sensitivity, EKG, and a nasal culture for MRSA. We have also obtained medical clearance from the patient's primary care provider. Patient states that he plans on doing in-home physical therapy for the first 1 to 2 weeks postoperatively with [facility] home care. Patient states that he will mo st likely elect to do outpatient physical therapy at our clinic. Patient has a walker but will need to obtain a raised toilet seat, shower chair and a hip kit. During today's visit we reviewed the total hip packet as well as precautions. We discussed discharge planning from the hospital. I provided paperwork to obtain a handicap placard for their vehicle. We discussed lectures offered by [facility] in regards to joint replacement surgery via Zoom. I advised the patient that upon discharge from hospital we will prescribe a narcotic pain medication and a hand anti-inflammatory. Patient will also be on an 81 mg aspirin twice daily for blood clot prevention. Patient will be scheduled for 2-week postoperative follow-up visit with Antonio on October 16. History of Present Illness Chief Complaint: Chief Complaint: Left hip pain Primary Care Provider: Jose Limon DO History of Present Illness (including history relevant to procedure): This 80-year-old male presents to the clinic today for his preoperative history and physical. Patient states that he has had hip pain for approximately the last 3 years. He states that he previously had a right total hip arthroplasty done in April 2021 and states that is doing very well. Patient states that pain seems to be worse when he sits for long period of time or is on his feet for long period of time. He states that sometimes he does walk with a limp. Currently he is using Tylenol as a pain relieving agent. Due to failed conservative management and the positive effects of his right hip replacement he is electing to proceed with surgical intervention. Review Of Systems: A 12 point review of systems is performed and is unremarkable except for those things stated in the HPI past medical history Past Medical History: Problems: Lumbar stenosis Arthritis of spine Nocturia Sleep disturbance Low back pain Knee pain Hip pain Back pain Back pain Status post total hip replacement, right Right lumbar radiculopathy S/P right rotator cuff repair Torn rotator cuff Arthritis of right hip GERD Dyslipidemia OTHER SEBORRHEIC KERATOSIS ACTINIC KERATOSIS Procedure History Procedure Procedure Date Comments Tonsillectomy Appendectomy Colonoscopy normal - 2006 Plain X-ray of right hip 07/01/2022 - 1. Dislocated right hip total joint arthroplasty.2. No acute fracture identified. Plain X-ray of right hip 07/01/2022 - 1. Successful reduction of the dislocated right hip arthroscopy.2. No fracture is seen. Plain X-ray of lumbar spine 03/16/2022 - Impression:1. No acute Abnormality2. Increaseed degenerative disc and degenerative facet joint disease characteristic of lumbar canal stenosis Hip replacement 04/2021 - Right hip Arthroplasty of right hip joint 05/08/2021 Chest X-ray 04/16/2021 - impression:No active disease in the chest Surgery 09/13/2018 - rotator cuff R shoulder Right shoulder 09/11/2018 - torn rotater cuff repair Right groin ultrasound 07/15/2018 - Impression:1. Small fat containing reducible right lower quadrant abdominal wall hernia adjacent to an appendectomy scar. This may reflect an incisional hernia. 2. No right inguinal hernia. Skeletal X-ray of pelvis and hip right 07/15/2018 - Impression:1. Mild degenerative changes.2. No acute fractures3. No destructive lesions are visualized on conventional radiographic imaging Colonoscopy 04/05/2017 - non-bleeding internal hemorrhoidsone 3 mm polyp in the sigmoid colon, removed with a cold biopsy forceps. Resected and retrieved knee surgery 12/23/2013 - 1970s Allergies and Sensitivities: NKA Current Home Meds: (Last Updated 09/12 08:31) acetaminophen (Tylenol 325 mg oral tablet) 325 mg PO q4h PRN: as needed for pain dimenhyDRINATE (Dramamine 50 mg oral tablet, chewable) 50 mg PO q8h PRN: as needed for nausea/vomiting meloxicam (meloxicam 15 mg oral tablet) 15 mg PO Daily pravastatin (pravastatin 10 mg oral tablet) 1 tab PO qhs Allergies Allergy/AdvReac Type Severity Reaction Status Date / Time No Known Allergies Allergy Verified 08/23/25 14:38 Home Medications Medication Instructions Recorded Confirmed Type pravastatin 10 mg tablet 10 mg PO HS 09/02/18 08/23/25 History meloxicam 15 mg tablet 15 mg PO DAILY PRN Pain (Scale 11/24/23 08/23/25 History Score 1-3) acetaminophen 325 mg tablet 650 mg PO QID PRN Pain 11/16/24 08/23/25 History (Tylenol) dimenhydrinate 25 mg chewable 50 mg PO HS PRN Vertigo 12/22/24 08/23/25 History tablet (Dramamine) ibuprofen 200 mg capsule 400 mg PO Q6H PRN Pain 01/17/25 08/23/25 History Past Med/Surg History Problem List (Updated 09/18/25 @ 09:30 by Rohan August PA-C) Osteoarthritis of left hip H/O umbilical hernia repair (01/04/25) Open Recurrent Umbilical Hernia Repair with Mesh; enterolysis - Frandy Nicole, DO Left Inguinal Nerve Injection(Left) - Frandy Nicole, DO Recurrent umbilical hernia Left groin pain Thyroid nodule Umbilical hernia without mention of obstruction or gangrene Lumbar spondylosis Arthritis of right hip Encounter for pre-operative examination Hyperlipidemia Medical History Hyperlipidemia Thyroid nodule Incidentally found on imaging Vertigo Intermittent- Dramamine PRN No current issues at [facility] appt 09/04/25 History of COVID-19 (~10/2024) Nov 16, 2024 > tested at [facility] > symptoms resolved Osteoarthritis GERD (gastroesophageal reflux disease) well controlled and stable Surgical History S/P epidural steroid injection H/O total hip arthroplasty (04/2021) Right H/O left inguinal hernia repair (12/30/23) Left Open repair of recurrent Inguinal Hernia with Mesh(Left) - Frandy Nicole H/O umbilical hernia repair (12/2024) Open Repair Umbilical Hernia(Not Applicable) - Frandy Nicole, History of hip surgery (~2021) right hip dislocation post RTHR, returned to surgery History of total right hip replacement (~2020) Hx of tonsillectomy History of repair of rotator cuff right Hx of hernia repair inguinal (remote history) History of tooth extraction History of colonoscopy History of appendectomy History of total knee replacement (~2013) right Family History Mother Heart disease Father Heart disease Other No family history of adverse response to anesthesia Social History Smoking Status: Never smoker Second Hand Exposure: No; Do You Dip or Chew Tobacco: No; Hx Alcohol Use: Yes Alcohol type: wine Hx Substance Use: No Preferred Language: Sami Communication Ability: Effective Corduroy Cutting Supervisor Required: No Beliefs That Will Affect Care: None marital status: Current Living Situation: Spouse Current Living Situation Comment: Home with spouse current occupational status: retired How many Children do You have: 2 Feels Safe at Home: Yes during the past year weight has: remained stable Assistive Devices: Cane and Glasses Review of Systems All systems reviewed & are unremarkable except as noted in Subjective Physical Exam Physical Exam: Initial Wt: 09/11 92.6 kg 204 lb Physical Exam: (relevant to the procedure, including heart and lung evaluation) General: Alert and oriented x 3 with proper grooming and hygiene Eyes: Pupils are equal and reactive to light with accommodation. Extraocular movements are intact Throat: Posterior oropharynx is clear with absence of edema, erythema or exudate. Dentition is appropriate. Cardiac: Regular rate and rhythm with no murmurs or gallops appreciated Lungs: Clear to auscultation throughout no wheezing, rales or rhonchi Abdomen: Obese, nondistended, nontender with normal active bowel sounds Extremities: Left hip; Flexion 100 in seated position with groin pain/ External rotation 20/ Internal rotation 20 antalgic gait. Tenderness to palpation in the groin. Neurovascularly intact. Discomfort in groin with Stinchfield testing. Neuro: Cranial nerves II through XII are intact no motor or sensory deficit Skin: Normal in appearance with no open skin areas or discharge Results & Data Diagnostic Findings Studies (relevant to the procedure): MRI of the left hip done on 07/23/2025 that I agree with the radiologist and my independent interpretation show moderate osteoarthritis of the left hip with full thickness cartilage loss, osteophytes, acetabular Bone marrow edema centrally.
[2025-10-04] MEDS: FAMOTIDINE 20 MG TAB PO SCH (05:51)
[2025-10-04] MEDS: CeleBREX 200 MG CAP PO SCH (05:51)
[2025-10-04] MEDS: ACETAMINOPHEN 500 MG TAB PO SCH ×2 (05:51→13:49)
[2025-10-04] MEDS: LR 500ML BOLUS, THEN 15ML/HR IV SCH (05:59)
[2025-10-04] MEDS: LR 60ML/HR IV SCH (05:59)
[2025-10-04] MEDS ORDERED: ROPIVACAINE 0.5% HCL/PF 246 MG, Ketorolac (*for OR use only*) 30 MG, EPINEPHrine 30MG/3... INFIL SCH (06:00)
[2025-10-04] MEDS: dexAMETHasone**PF** 10 MG/ML VIAL IV SCH (06:02)
[2025-10-04] MEDS ORDERED: MIDAZOLAM HCL 1 MG/ML 2ML VIAL ONE (06:15)
[2025-10-04] MEDS ORDERED: BUPIVACAINE 0.5 % 5 MG/1 ML PF 10ML VIAL ONE (06:29)
[2025-10-04] MEDS ORDERED: ONDANSETRON INJ 2 MG/ML 2 ML VIAL IV PRN ×2 (06:30→08:38)
[2025-10-04] MEDS ORDERED: ATROPINE SULFATE 0.1 MG/ML 10ML SYR IV PRN (06:30)
[2025-10-04] MEDS ORDERED: PROPOFOL IV EMULSION 10 MG/ML 20 ML VIAL IV ONE ×3 (06:36→08:09)
--- NOTE | 2025-10-04 06:39 | History & Physical Bridge Note ---
Date of Service October 04, 2025 History & Physical Bridge Note I have examined the patient, reviewed the History & Physical and in the interval since the performance of the History & Physical I have noted the following changes of clinical significance: no changes noted
[2025-10-04] MEDS: TRANEXAMIC ACID 1,000 MG **IV Pre-op IV SCH (06:42)
[2025-10-04] MEDS ORDERED: DEXAMETHASONE SOD INJ 4 MG/ML VIAL ONE (07:22)
[2025-10-04] MEDS ORDERED: ONDANSETRON INJ 2 MG/ML 2 ML VIAL ONE (07:22)
[2025-10-04] MEDS: ROPIV 0.5% 246mg, Ketorolac 30mg, EPINEPHrine 0.5mg in NSS INFIL SCH (07:25)
[2025-10-04] MEDS: ORTHO JOINT ANESTHETIC ONE (07:26)
[2025-10-04] MEDS ORDERED: ePHEDrine sulfate 50 MG/5 ML SYR ONE (07:36)
--- NOTE | 2025-10-04 08:35 | Operative Report ---
Post Operative Report Pre & Post Diagnosis Operation Date: 10/04/25 07:00 Pre-Op Diagnosis: Unilateral Primary Osteoarthritis Hip Left Post-Op Diagnosis: Unilateral Primary Osteoarthritis Hip Left I identified the patient and participated in the time-out.: Yes Procedure Operation Date: 10/04/25 07:00 Actual Procedures p Left Total Hip Arthroplasty(Left) - Matthew Marrufo MD Surgeon Matthew Marrufo MD Surgical Tech Ariel August PAJaquelin Estimated Blood Loss 100 Findings Consistent with Post-Op Diagnosis Specimens femoral head Description of Procedure I was present during the entire case assisting with positioning, prepping, draping, wound retraction, wound closure, dressing and abduction pillow placement. No fellow present. Please see Dr. Marrufo operative note for specifics of the case. I attest to the content of the Intraoperative Record and any orders documented therein. Any exceptions are noted below.
--- NOTE | 2025-10-04 08:36 | Operative Report ---
Post Operative Report Pre & Post Diagnosis Operation Date: 10/04/25 07:00 Pre-Op Diagnosis: Unilateral Primary Osteoarthritis Hip Left Post-Op Diagnosis: Unilateral Primary Osteoarthritis Hip Left I identified the patient and participated in the time-out.: Yes Procedure Operation Date: 10/04/25 07:00 Actual Procedures p Left Total Hip Arthroplasty(Left) - Matthew Marrufo MD Surgeon Matthew Marrufo MD Stitch Burnisher JUANCHO August PA-C. No resident or fellow was available to assist. Estimated Blood Loss 100 Findings Consistent with Post-Op Diagnosis Specimens Left femoral head Anesthesia Type Spinal MAC Complications none Disposition Disposition: Recovery Room Indications 80-year-old male with left hip pain refractory to conservative management. X- rays and an MRI were obtained. These demonstrate osteoarthritis and degenerative tearing of his labrum. Having failed extensive nonsurgical management he is now a candidate for surgery. He has previously undergone a right total hip arthroplasty on his contralateral side with an overall good result although he did have 1 postoperative dislocation. I had a long discussion with him about the risks and benefits of surgery, alternatives to surgery, and expected outcomes. After reviewing all these he elected proceed with surgery. All questions were answered. Informed consent was signed. Description of Procedure Patient was identified in the preoperative holding area where the surgical site, left hip, was marked. A spinal anesthetic was placed, then the patient was brought back to the main operating room, placed in the operating table and moved into the lateral decubitus position. Axillary roll was placed. All bony prominences were padded. Perioperative antibiotics and tranexamic acid 1 gram IV were administered. The operative extremity was prepped and draped in the normal sterile fashion. Prior to incision a multidisciplinary timeout was called. All in the room were in agreement. We began by making an incision for a posterior approach to the hip. We dissected down through subcutaneous tissues to the level of the fascia. The fascia was incised in line with the incision. Charnley bow was placed. Fatty tissue was reflected posteriorly off the back of the greater trochanter to expose the piriformis and short external rotators of the hip. Quadratus femoris was taken off the femur subperiosteally. The piriformis and short external rotators were dissected off the posterior aspect of the hip. A box cut was made in the capsule. Inferior hip capsule was released off the femur. The femoral head was dislocated. The femoral neck cut was made at our preoperative template. The acetabulum was then exposed. The labrum was sharply excised. Contents of the cotyloid fossa were removed with electrocautery. We then began reaming at a size 8 mm less than our preoperative template. We reamed up by 1 [address] the way up to a size 56 mm cup. This gave us good bleeding cancellus bone circumferentially. The acetabulum was then irrigated out and dried. The real [place] Gription cup was then impacted down into position with 40 degrees of lateral opening and 20 degrees of anteversion. A single cancellous bone screw was placed up into the ilium. Excellent fixation was obtained. A trial liner for a 36 mm femoral head was then placed. Next we turned our attention to the femur. The lateral neck was removed with a box osteotome. Intramedullary guide was used to establish the intramedullary canal. We then broached all the way up to a size 7. We began trialing with a high offset neck and a +1.5 head. Hip was reduced. Leg lengths were symmetric. The hip was stable in extension and external rotation, and stable in the sleeper position. At 90 degrees of hip flexion the hip could be internally rotated 40 degrees before levering out of the cup. Given his history of a postoperative dislocation on the contralateral right hip I wanted to get a little bit better stability on this hip. Therefore I decided to use a dual mobility component. The hip was dislocated and the femoral trial was removed. The acetabulum was re-exposed, and the trial liner was removed. The metal shell for the dual mobility liner was placed and impacted into position, then checked to ensure that it had engaged which it had. The femur was re-exposed. The femoral canal was irrigated and dried. The real Actis femoral stem was opened up. This was impacted down into position. The dual mobility femoral head was opened up, assembled on the back table, and gently impacted down onto the trunnion. The hip was atraumatically reduced. Another 1 gram of IV tranexamic acid was started prior to closure. The wound was irrigated out with sterile Betadine solution. The periarticular injection cocktail was then placed. The short external rotators, piriformis, and posterior capsule were repaired through drill holes in the greater trochanter using #2 Vicryl. The fascia was run with a looped #1 PDS. The subcutaneous layer was closed with #1 PDS. The dermal layer was closed with 2-0 Vicryl. Zip line was used for the skin followed by a Silverlon dressing. A compressive dressing was then placed. The patient was then rolled supine. Leg lengths were rechecked and were symmetric. An abduction pillow was placed. Sedation was lifted and the patient was transferred to the recovery room in stable condition. Summary of implants: [employer] emphasis Acetabular Shell 3 hole cup, 56 mm outer diameter Norwood Cancellous bone screw, 6.5 x 40 mm 56 x 46 metal dual mobility emphasis liner DePuy Actis collared cementless Femoral stem, 12/14 taper, size 7 high offset 46 x 36 emphasis AOX polyethylene bipolar head. 36 mm ceramic femoral head with +1.5 offset Postoperative course: Patient will be admitted overnight from the recovery room. Patient will be weightbearing as tolerated with posterior hip precautions. Aspirin for DVT prophylaxis I attest to the content of the Intraoperative Record and any orders documented therein. Any exceptions are noted below.
[2025-10-04] MEDS ORDERED: TAMSULOSIN HCL 0.4 MG CAP PO PRN (08:38)
[2025-10-04] MEDS ORDERED: NALOXONE HCL 0.4 MG/1 ML VIAL/CARP IV PRN (08:38)
[2025-10-04] MEDS ORDERED: MAGNESIUM HYDROXIDE SUSP 30 ML UDC PO PRN (08:38)
[2025-10-04] MEDS ORDERED: ALUMINUM/MAGNESIUM SUSP 30 ML UDC PO PRN (08:38)
[2025-10-04] MEDS ORDERED: diphenhydrAMINE 50 MG/ML VIAL IV PRN (08:38)
[2025-10-04] MEDS ORDERED: METOCLOPRAMIDE HCL INJ 5 MG/ML 2 ML VIAL IV PRN (08:38)
[2025-10-04] MEDS ORDERED: KETOROLAC TROMETHAMINE 15 MG/ML VIAL IV SCH (08:45)
[2025-10-04] MEDS ORDERED: ASPIRIN 81 MG ECTAB PO SCH (09:00)
--- NOTE | 2025-10-04 09:09 | XRay Report ---
SINGLE VIEW PELVIS CLINICAL HISTORY: Postoperative examination. FINDINGS: An AP portable view of the pelvis is compared to study dated 09/11/2025. A bipolar left hi p arthroplasty is in near-anatomic alignment. A single cortical lag screw is seen transfixing the eufemia tabular cup. No acute fracture is identified. Subcutaneous gas and soft tissue swelling overlying the left hip are expected postsurgical changes. A right hip arthroplasty is unchanged in appearance. The re is degenerative sclerosis of the sacroiliac joints. Phleboliths are seen in the pelvis. IMPRESSION: Expected postoperative findings status post left hip arthroplasty. No acute fracture is s een. ACT 112: Negative or not required by law. Electronically signed by: Camilo Sharma M.D. 10/04/2025 9:08 AM
[2025-10-04] MEDS ORDERED: MELOXICAM 7.5 MG TAB PO PRN (10:00)
[2025-10-04] MEDS: SODIUM CHLORIDE 0.9% 1,000 ML IV SCH (10:59)
[2025-10-04] MEDS: MULTIVITAMIN TAB PO SCH (11:03)
[2025-10-04] MEDS: DOCUSATE SODIUM 100 MG CAP PO SCH (11:04)
--- NOTE | 2025-10-04 11:34 | Anesthesiology Progress Note ---
Date of Service October 04, 2025 Anesthesia Post Procedure Vital Signs Vital Signs: Temp Pulse Pulse Resp BP Pulse Ox O2 Del Method 10/04/25 11:08 97.7 F 82 17 136/78 92 Room Air 10/04/25 10:59 97.2 F L 83 16 136/73 94 Room Air 10/04/25 10:08 97.9 F 78 17 128/74 94 Room Air 10/04/25 10:01 97.3 F L 81 17 127/76 94 Room Air 10/04/25 09:35 97.3 F L 72 18 120/85 98 Nasal Cannula 10/04/25 09:25 69 14 121/58 L 98 Nasal Cannula 10/04/25 09:15 68 12 130/64 99 Nasal Cannula 10/04/25 09:05 66 16 121/58 L 95 Nasal Cannula 10/04/25 08:55 67 16 116/67 97 Nasal Cannula 10/04/25 08:45 69 14 113/64 96 Nasal Cannula 10/04/25 08:35 96.8 F L 76 12 96/52 L 95 Nasal Cannula 10/04/25 05:42 97.7 F 68 20 155/79 H 98 Room Air O2 Flow Rate 10/04/25 11:08 10/04/25 10:59 10/04/25 10:08 10/04/25 10:01 10/04/25 09:35 2 10/04/25 09:25 2 10/04/25 09:15 2 10/04/25 09:05 2 10/04/25 08:55 2 10/04/25 08:45 2 10/04/25 08:35 2 10/04/25 05:42 Transfer of Care Handoff Completed per policy Notes Mental Status: alert / awake / arousable and participated in evaluation Patient Amnestic to Procedure: Yes Nausea / Vomiting: adequately controlled Pain: adequately controlled Airway Patency, RR, SpO2: stable & adequate BP & HR: stable & adequate Hydration State: stable & adequate Anesthetic Complications: no major complications apparent and Pt Satisfied with anesthetic care
[2025-10-04] MEDS: KETOROLAC TROMETHAMINE 15 MG/ML VIAL IV SCH (12:12)
[2025-10-04] MEDS: Scopolamine CHECK PATCH PLACEMENT SCH (16:35)
[2025-10-04] MEDS: PRAVASTATIN SOD 10 MG TAB PO SCH (20:07)
[2025-10-04] MEDS: SENNA 8.6 MG TAB PO SCH (20:07)
[2025-10-04] MEDS ORDERED: CeleBREX 200 MG CAP PO SCH (21:00)
[2025-10-05 06:42] LABS: Hematocrit (blood only) 35.4 % (42.0-52.0); Hemoglobin 11.9 g/dL (14.0-18.0); Immature Granulocytes # (auto) 0.05 K/uL (0.01-0.20); Immature Granulocytes % (auto) 0.5 %; Mean Corpuscular Hemoglobin 32.0 pg (25.0-34.0); Mean Corpuscular Volume 95.2 fL (80.0-100.0); Platelet Count 140 K/uL (130-400); RDW Standard Deviation 41.7 fL (36.4-46.3); Red Blood Count 3.72 M/uL (4.70-6.10); White Blood Count 9.68 K/ul (4.8-10.8)
[2025-10-05 07:06] LABS: Anion Gap 7.0 (3-11); Blood Urea Nitrogen 27.0 mg/dl (6-23); Calcium 8.5 mg/dl (8.6-10.3); Carbon Dioxide 27.0 mmol/L (21-32); Chloride 105.0 mmol/L (98-107); Creatinine Clr Calc Pharmacy 56.6 ml/min; Glucose 110.0 mg/dl (70-99(Fasting)); Potassium 4.6 mmol/L (3.5-5.1); Sodium 139.0 mmol/L (136-145)
[2025-10-05 07:36] VITALS: BP 123/64; PULSE 61; RESP 16; TEMP 97.5; O2SAT 93
[2025-10-05] MEDS: ASPIRIN 81 MG ECTAB PO SCH (08:47)
[2025-10-05] MEDS: dexAMETHasone 10 MG in SYRINGE 0 ML IV SCH (08:47)
--- NOTE | 2025-10-05 09:58 | Orthopedic Progress Note ---
Date of Service October 05, 2025 Assessment & Plan (1) S/P total left hip arthroplasty: Plan: Total hip precautions reviewed Keep Silverlon dressing in place Abduction pillow use x 6 weeks PT/OT Weightbearing as tolerated with walker assistance DVT prophylaxis with aspirin and YUSEF stockings Ice with easy wrap Pain control with p.o. medication Plan is to discharge home today with in-home physical therapy for the first 2 weeks. Follow-up at [facility] orthopedics as previously scheduled With questions contact our clinic at [phone] Admission and Anticipated Discharge Date Admission Date: October 04, 2025 Subjective This 80-year-old male is day 1 status post left total hip arthroplasty. Patient states he is doing very well. He states that his pain is well- controlled with p.o. pain medication. He states that he did very well with physical therapy and Occupational Therapy. He is dressed and ready to be discharged home. Currently he denies chest pain, shortness of breath, fever, chills, sweats, nausea, vomiting, diarrhea, difficulty voiding or numbness or tingling in his left lower extremity. Review of Systems Review of Systems: All systems reviewed & are unremarkable except as noted in Subjective Physical Exam Physical Exam: Left hip: Patient is able to easily transition from a seated to a standing position with his walker. He was able to easily ambulate throughout the room and down the hallway. Patient had no difficulty performing an active straight leg raise test or actively dorsi or plantar flexing his foot. He tolerated light passive hip flexion near 80 degrees and experienced no discomfort with light passive internal or external hip rotation. Logroll test causes no discomfort. Quad strength is 4+ out of 5. Patient was neurovascularly intact in the left lower extremity. Results & Data Vital Signs (Past 12 Hours) Vital Signs Temp Pulse Resp BP Pulse Ox O2 Del Method 10/05/25 07:16 36.4 C L 61 16 123/64 93 Room Air 10/05/25 04:11 36.5 C 70 19 115/65 92 Room Air 10/05/25 00:00 36.7 C 67 18 104/92 92 Room Air 10/04/25 22:35 92 Diagnostic Findings Laboratory Results WBC 9.68 K/ul (4.8-10.8) 10/05/25 06:13 RBC 3.72 M/uL (4.70-6.10) L 10/05/25 06:13 Hgb 11.9 g/dL (14.0-18.0) L 10/05/25 06:13 Hct 35.4 % (42.0-52.0) L 10/05/25 06:13 MCV 95.2 fL (80.0-100.0) 10/05/25 06:13 MCH 32.0 pg (25.0-34.0) 10/05/25 06:13 MCHC 33.6 g/dL (32.0-36.0) 10/05/25 06:13 RDW Std Deviation 41.7 fL (36.4-46.3) 10/05/25 06:13 RDW Coeff of Kai 12.1 % (11.5-14.5) 10/05/25 06:13 Plt Count 140 K/uL (130-400) 10/05/25 06:13 MPV 10.1 fL (9.4-12.4) 10/05/25 06:13 Immature Gran % (Auto) 0.5 % 10/05/25 06:13 Neut % (Auto) 80.0 % 10/05/25 06:13 Lymph % (Auto) 8.1 % 10/05/25 06:13 [place] % (Auto) 11.4 % 10/05/25 06:13 Eos % (Auto) 0.0 % 10/05/25 06:13 Baso % (Auto) 0.0 % 10/05/25 06:13 Neut # (Auto) 7.75 K/uL (1.40-6.50) H 10/05/25 06:13 Lymph # (Auto) 0.78 K/uL (1.20-3.40) L 10/05/25 06:13 [place] # (Auto) 1.10 K/uL (0.11-0.59) H 10/05/25 06:13 Eos # (Auto) 0.00 K/uL (0.00-0.50) 10/05/25 06:13 Baso # (Auto) 0.00 K/uL (0.00-0.20) 10/05/25 06:13 Immature Gran # (Auto) 0.05 K/uL (0.01-0.20) 10/05/25 06:13 Sodium 139 mmol/L (136-145) 10/05/25 06:13 Potassium 4.6 mmol/L (3.5-5.1) 10/05/25 06:13 Chloride 105 mmol/L (98-107) 10/05/25 06:13 Carbon Dioxide 27 mmol/L (21-32) 10/05/25 06:13 Anion Gap 7 (3-11) 10/05/25 06:13 BUN 27 mg/dl (6-23) H 10/05/25 06:13 Creatinine 1.18 mg/dl (0.6-1.4) 10/05/25 06:13 Est Cr Clr Drug Dosing 56.6 ml/min 10/05/25 06:13 eGFR 63.16 10/05/25 06:13 BUN/Creatinine Ratio 22.9 (10-20) H 10/05/25 06:13 Glucose 110 mg/dl (70-99(Fasting)) H 10/05/25 06:13 Calcium 8.5 mg/dl (8.6-10.3) L 10/05/25 06:13 Impressions Pelvis X-Ray 10/04/25 08:38 SINGLE VIEW PELVIS CLINICAL HISTORY: Postoperative examination. FINDINGS: An AP portable view of the pelvis is compared to study dated 09/11/2025. A bipolar left hip arthroplasty is in near-anatomic alignment. A single cortical lag screw is seen transfixing the acetabular cup. No acute fracture is identified. Subcutaneous gas and soft tissue swelling overlying the left hip are expected postsurgical changes. A right hip arthroplasty is unchanged in appearance. There is degenerative sclerosis of the sacroiliac joints. Phleboliths are seen in the pelvis. IMPRESSION: Expected postoperative findings status post left hip arthroplasty. No acute fracture is seen. ACT 112: Negative or not required by law. Electronically signed by: Camilo Sharma M.D. 10/04/2025 9:08 AM
--- NOTE | 2025-10-05 10:00 | Discharge Summary ---
Date of Service October 05, 2025 Admission HPI Per Admitting Provider History of Present Illness (including history relevant to procedure): This 80-year-old male presents to the clinic today for his preoperative history and physical. Patient states that he has had hip pain for approximately the last 3 years. He states that he previously had a right total hip arthroplasty done in April 2021 and states that is doing very well. Patient states that pain seems to be worse when he sits for long period of time or is on his feet for long period of time. He states that sometimes he does walk with a limp. Currently he is using Tylenol as a pain relieving agent. Due to failed conservative management and the positive effects of his right hip replacement he is electing to proceed with surgical intervention. Review Of Systems: A 12 point review of systems is performed and is unremarkable except for those things stated in the HPI past medical history Past Medical History: Problems: Lumbar stenosis Arthritis of spine Nocturia Sleep disturbance Low back pain Knee pain Hip pain Back pain Back pain Status post total hip replacement, right Right lumbar radiculopathy S/P right rotator cuff repair Torn rotator cuff Arthritis of right hip GERD Dyslipidemia OTHER SEBORRHEIC KERATOSIS ACTINIC KERATOSIS Procedure History Procedure Procedure Date Comments Tonsillectomy Appendectomy Colonoscopy normal - 2006 Plain X-ray of right hip 07/01/2022 - 1. Dislocated right hip total joint arthroplasty.2. No acute fracture identified. Plain X-ray of right hip 07/01/2022 - 1. Successful reduction of the dislocated right hip arthroscopy.2. No fracture is seen. Plain X-ray of lumbar spine 03/16/2022 - Impression:1. No acute Abnormality2. Increaseed degenerative disc and degenerative facet joint disease characteristic of lumbar canal stenosis Hip replacement 04/2021 - Right hip Arthroplasty of right hip joint 05/08/2021 Chest X-ray 04/16/2021 - impression:No active disease in the chest Surgery 09/13/2018 - rotator cuff R shoulder Right shoulder 09/11/2018 - torn rotater cuff repair Right groin ultrasound 07/15/2018 - Impression:1. Small fat containing reducible right lower quadrant abdominal wall hernia adjacent to an appendectomy scar. This may reflect an incisional hernia. 2. No right inguinal hernia. Skeletal X-ray of pelvis and hip right 07/15/2018 - Impression:1. Mild degenerative changes.2. No acute fractures3. No destructive lesions are visualized on conventional radiographic imaging Colonoscopy 04/05/2017 - non-bleeding internal hemorrhoidsone 3 mm polyp in the sigmoid colon, removed with a cold biopsy forceps. Resected and retrieved knee surgery 12/23/2013 - 1970s Allergies and Sensitivities: NKA Current Home Meds: (Last Updated 09/12 08:31) acetaminophen (Tylenol 325 mg oral tablet) 325 mg PO q4h PRN: as needed for pain dimenhyDRINATE (Dramamine 50 mg oral tablet, chewable) 50 mg PO q8h PRN: as needed for nausea/vomiting meloxicam (meloxicam 15 mg oral tablet) 15 mg PO Daily pravastatin (pravastatin 10 mg oral tablet) 1 tab PO qhs Admission Exam Per Admitting Provider Initial Wt: 09/11 92.6 kg 204 lb Physical Exam: (relevant to the procedure, including heart and lung evaluation) General: Alert and oriented x 3 with proper grooming and hygiene Eyes: Pupils are equal and reactive to light with accommodation. Extraocular movements are intact Throat: Posterior oropharynx is clear with absence of edema, erythema or exudate. Dentition is appropriate. Cardiac: Regular rate and rhythm with no murmurs or gallops appreciated Lungs: Clear to auscultation throughout no wheezing, rales or rhonchi Abdomen: Obese, nondistended, nontender with normal active bowel sounds Extremities: Left hip; Flexion 100 in seated position with groin pain/ External rotation 20/ Internal rotation 20 antalgic gait. Tenderness to palpation in the groin. Neurovascularly intact. Discomfort in groin with Stinchfield testing. Neuro: Cranial nerves II through XII are intact no motor or sensory deficit Skin: Normal in appearance with no open skin areas or discharge Principal Diagnosis Left hip osteoarthritis Discharge Exam Left hip: Patient is able to easily transition from a seated to a standing position with his walker. He was able to easily ambulate throughout the room and down the hallway. Patient had no difficulty performing an active straight leg raise test or actively dorsi or plantar flexing his foot. He tolerated light passive hip flexion near 80 degrees and experienced no discomfort with light passive internal or external hip rotation. Logroll test causes no discomfort. Quad strength is 4+ out of 5. Patient was neurovascularly intact in the left lower extremity. Discharge Data Allergies Allergy/AdvReac Type Severity Reaction Status Date / Time No Known Allergies Allergy Verified 10/04/25 05:41 Procedures Performed Operation Date: 10/04/25 07:00 Actual Procedures p Left Total Hip Arthroplasty(Left) - Matthew Marrufo MD Hospital Course (1) S/P total left hip arthroplasty: Patient had an uneventful overnight stay following a left total hip arthroplasty. He is very pleased with the results of the surgery. He states that he feels that he is doing very well this morning and is anticipating being discharge home later this AM. Total hip precautions reviewed Keep Silverlon dressing in place Abduction pillow use x 6 weeks PT/OT Weightbearing as tolerated with walker assistance DVT prophylaxis with aspirin and YUSEF stockings Ice with easy wrap Pain control with p.o. medication Plan is to discharge home today with in-home physical therapy for the first 2 weeks. Follow-up at [facility] orthopedics as previously scheduled With questions contact our clinic at [phone] Total Time Total Time Spent Total Time Spent (In Minutes): 25 mins Discharge Plan Discharge Items Patient Disposition: Home - Home Health Services Reason For Visit: Post surgical care Discharge Diagnosis: s/p left total hip arthorplasty Activity: As commented below Lifting: None Bathing: Keep incision dry Bathing Comment: May shower tomorrow Sexual Activity: Wait until after follow-up appointment Exercise/Sports: Wait until after follow-up appointment Driving/Machine Use: No driving until cleared by wardrobe specialist Weightbearing: Left weightbearing Weightbearing Comment: as tolerated with walker assistance Non-emergency contact: Surgeon Call non-emergency contact if: you have any medication questions, your pain is not controlled, your temperature is above 101.5, your wound has increased drainage and your wound pain has increased Follow-up/Referrals: Jose Limon DO [Primary Care Provider] - Diet: Regular Addtl Attending Provider Instructions: Post-operative Instructions Dear Patient and Family/Friends, Before you are discharged from the hospital, it is important to know what to expect when you get home after surgery. To that end, we have created this sheet of discharge instructions which covers many commonly asked questions. Make sure you go through this sheet in its entirety with your nurse before you are discharged. Please note that we will go over the specifics of your surgery and recovery when you return for your first post-operative visit. Sincerely, Dr. Marrufo Medications 1. Oxycodone 5 mg: Take 1 to 2 tablets every 4-6 hours as needed for postoperative pain control. A prescription for this medication will be sent to your pharmacy. 2. Diclofenac sodium 75 mg: Take 1 tablet twice daily for the first 30 days postoperatively for pain and inflammation relief. A prescription for this medication will be sent to your pharmacy with a refill 3. Aspirin 81 mg: Take 1 tablet twice daily for the first 30 days postoperatively for blood clot prevention. Please purchase this medication. 4. Tylenol 650 mg: Resume your normal Tylenol dosage for additional pain relief. Pain Expect to be in a fair amount of pain after surgery. Remember, our goal is not to eliminate your pain, but to make it tolerable. It is a good idea to stay ahead of your pain by taking the medications you were prescribed once you get home. Typically, the pain starts improving 3-7 days after surgery. You should start weaning off the narcotic pain medication (oxycodone, hydrocodone, hydromorphone, morphine) as soon as your pain improves. Please call our office if your pain is not adequately controlled. Ice Ice your operative site at least 5 times a day for 15-30 minutes at a time. Make sure you have a thin cloth between the ice or cooling unit and your skin to prevent hamilton bite. This is especially important if you received a nerve block. Continue icing your operative site for the first 5-7 days after surgery, then as needed. Diet/Nausea/Vomiting Start by drinking clear liquids and eating crackers. If you can tolerate this, then you may resume your normal diet. If you feel nauseated or vomit, take Zofran/ondansetron (if prescribed). Please call our office if you have intractable nausea or vomiting, or, if after hours, you may go to the Emergency Room for help. Constipation Constipation is a common side effect of narcotic pain medication. If you have not had a bowel movement within 2 days after surgery, we recommend purchasing an over the counter laxative such as Milk of Magnesia, Dulcolax, or Miralax from a local pharmacy, and taking it as instructed. Call our clinic if any questions. Nerve block The anesthesia team sometimes places a nerve block to help with post-operative pain control. This results in significant numbness and inability to move the extremity. The nerve block usually wears off in 8-12 hours, but sometimes can last up to 24 hours. Please call our office if you are still unable to move your extremity after 24 hours, unless you received a pain pump to take home. Nerve blocks typically wear off quickly, so start taking pain medication as soon as you start feeling soreness near your surgical site. Weight bearing and Range of Motion. Do not bear any weight through your operative extremity immediately after surgery. If you had upper extremity surgery, do not lift anything with that arm. If you are in a knee brace, keep it locked in place until your follow-up. We will discuss your weight bearing, range of motion, and lifting restrictions in detail at your first post-operative appointment. Continuous Passive Motion (CPM) Machine If you were prescribed a CPM machine, it will start after your first post- operative appointment, at which time we will give you instructions on the range of motion settings and duration of treatment Physical therapy You will be given a prescription for physical therapy or occupational therapy at your first post-operative appointment. Typically, patients start therapy within 1 week of surgery Wound care and showering We will inspect your wound at your first post-operative visit, and may do a dr orozco change at that time. Most patients will be in a water-proof dressing that is removed 14 days after surgery. It is normal to see some dried blood on the dressing. Do not remove your dressing, paper strips or sutures yourself unless you are given permission. Showering is allowed the day after surgery. Do not scrub or remove any dressings. The wound should not be submerged underwater (i.e. in a bathtub or pool) until 4 weeks after surgery UYSEF stockings If you were given white stockings, these are to be worn at all times except to shower (on both legs) for the first 2 weeks after surgery. Driving You may not drive while taking narcotic pain medication or while in a cast, splint, sling or brace. You, the patient, need to make the final determination about when you are safe to drive, however, the earliest you may consider driving after surgery is below: Hand/Wrist/Elbow Surgery: 3 days Shoulder Surgery: 2 weeks Hip,/Knee/Ankle Surgery: 4 weeks Fracture repair: 6 weeks Return to Work Your return to work depends on what surgery was done and what type of work you do. Please bring any paperwork your employer needs completed to your first post-operative visit. Also, bring a description of your job duties, as this helps us to understand what risks you may face at work. Travel Avoid long distance travel (greater than 1 hour) in airplanes and cars for the first 6 weeks after surgery. If you must travel, you need to have a Doppler ultrasound done before you travel to rule out a blood clot in your legs. Follow-up You should have a follow-up appointment already scheduled 1-2 days after surgery. If not, please contact our office to make this appointment before you leave the hospital. When to call the office It is normal to have swelling and bruising in the limb that was operated on. This will improve with time. It is also normal to have fevers for the first 2 days after surgery. Reasons you should call your doctor include: Uncontrolled pain; Nausea, vomiting, or constipation that does not improve with medication; Fevers over 101.5, chills, sweats; Drainage or bleeding from the wound; Foul odor; Spreading areas of redness; Any other concerns. Contact Information Please call Dr. Marrufo's office at [phone] with any concerns. Pending Studies at Discharge: No Stand-Alone Forms: My [facility] [employer] Medications and DC Order Prescriptions: New aspirin 81 mg Tablet,Delayed Release (Dr/Ec) 81 mg PO BID 30 Days Qty: 60 0RF oxycodone 5 mg Tablet 5 - 10 mg PO Q4H MDD Max 6/day PRN (Reason: Post op pain control) Qty: 28 0RF diclofenac sodium 75 mg tablet,delayed release (DR/EC) 75 mg PO BID 30 Days Qty: 60 1RF Continued pravastatin 10 mg Tablet 10 mg PO HS acetaminophen [Tylenol] 325 mg Tablet 650 mg PO QID PRN (Reason: Pain) Dramamine 25 mg Tablet,Chewable 50 mg PO HS PRN (Reason: Vertigo) Discontinued meloxicam 15 mg tablet 15 mg PO DAILY PRN (Reason: Pain (Scale Score 1-3)) ibuprofen 200 mg capsule 400 mg PO Q6H PRN (Reason: Pain) Discharge Orders: Discharge Order (Routine); Ordered 10/05/25 Ordered By: Rohan August Admission Data Admit Date/Time: 10/04/25 08:38 Attending Provider: Matthew Marrufo Admit Provider: Matthew Marrufo Primary Care Provider: Jose Limon Other Providers: [facility],Home Health
[2025-10-07] MEDS ORDERED: Scopolamine REMOVE TRANSDERM PATCH ONE (08:00)
== END 2025-10-05 10:37 | disposition home health service (06) | DRG 470 ==
LOC: ASU 05:27 → 3E 08:38